=== PATIENT | female | born 1975 | race Caucasian/White ===

== ENCOUNTER 2018-12-31 19:12 | Inpatient (IN) | payer BC ==
[2018-12-31] MEDS ORDERED: Nitroglycerin 0.4 MG Tab.SL SL ONE (19:43)
[2018-12-31] MEDS ORDERED: LORazepam 2 MG/ML SDV IM ONE (19:43)
--- NOTE | 2018-12-31 20:01 | EDM.PDOC ---
ED HPI GENERAL MEDICAL PROBLEM - General Chief Complaint: Gastrointestinal Problem Stated Complaint: STUCK IN THROAT Time Seen by Provider: 12/31/18 19:25 Source of Information: Reports: Patient, Family History Limitations: Reports: No Limitations - History of Present Illness INITIAL COMMENTS - FREE TEXT/NARRATIVE: 43-year-old female who had a Leidy fundoplication last August has since had some persistent problems swallowing with esophageal obstructions. She had one dilatation done several months ago. She continues to have persistent partial obstructions but tonight she ate some orange chicken and she has a complete obstruction for the last 2 hours. She can't swallow any water or saliva. She is fairly uncomfortable. No shortness of breath, no cough. Onset: Sudden Duration: Hour(s): (2 hours ago) Associated Symptoms: Reports: Chest Pain (Pain in the epigastric area and lower anterior chest), Malaise. Denies: Fever/Chills, Headaches, Shortness of Breath esophagus Pain Score (Numeric/FACES): 7 - Related Data Allergies Allergy/AdvReac Type Severity Reaction Status Date / Time codeine Allergy Swelling Verified 12/31/18 19:22 hydromorphone HCl Allergy Swelling Verified 12/31/18 19:22 [From Dilaudid] Home Meds: Home Meds traZODone 100 mg PO BEDTIME 03/14/16 [History] Past Medical History HEENT History: Reports: None Cardiovascular History: Reports: Other (See Below) Other Cardiovascular History: occasional PVC Gastrointestinal History: Reports: Cholelithiasis, Gastritis, GERD Genitourinary History: Reports: Renal Calculus [employer] History: Reports: Polycystic Ovaries, Endocrine/Metabolic History: Reports: Obesity/BMI 30+ - Infectious Disease History Infectious Disease History: Reports: Chicken Pox - Past Surgical History HEENT Surgical History: Reports: LASIK, Other (See Below) Cardiovascular Surgical History: Reports: None GI Surgical History: Reports: Cholecystectomy, EGD, Leidy Fundoplication Female Surgical History: Reports: Other (See Below) Other Female Surgeries/Procedures: cervical/ uterine polyp removed Endocrine Surgical History: Reports: None Musculoskeletal Surgical History: Reports: Arthroscopic Knee Social & Family History - Tobacco Use Smoking Status *Q: Never Smoker - Caffeine Use Caffeine Use: Reports: Coffee - Recreational Drug Use Recreational Drug Use: No ED ROS GENERAL - Review of Systems Review Of Systems: See Below Constitutional: Denies: Fever, Chills Respiratory: Denies: Shortness of Breath GI/Abdominal: Reports: Abdominal Pain. Denies: Nausea, Vomiting : Reports: No Symptoms Skin: Reports: No Symptoms Neurological: Reports: No Symptoms ED EXAM, GI/ABD - Physical Exam Exam: See Below Exam Limited By: No Limitations General Appearance: Alert, Mild Distress (Appears very uncomfortable) Eyes: Bilateral: Normal Appearance Respiratory/Chest: No Respiratory Distress Cardiovascular: Regular Rate, Rhythm GI/Abdominal Exam: Soft, Tender (Very tender in the epigastric region) Course - Vital Signs Last Recorded V/S: Last Vital Signs Temp 97.3 F 01/01/19 03:00 Pulse 58 L 01/01/19 03:00 Resp 16 01/01/19 03:00 BP 111/75 01/01/19 03:00 Pulse Ox 96 01/01/19 03:00 - Orders/Labs/Meds Orders: Medication Orders Glycopyrrolate (Glycopyrrolate) 0.4 mg IVPUSH Q1H PRN PRN 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: 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 Stop: 01/02/19 06:03 Lactated Ringer's (Ringers, Lactated) 1,000 mls @ 150 mls/hr IV ASDIRECTED [facility] Last Admin: 01/01/19 04:31 Dose: 150 mls/hr Infusion: 01/01/19 04:25 Dose: 150 mls/hr Admin: 12/31/18 21:44 Dose: 150 mls/hr Ketorolac Tromethamine (Toradol) 15 mg IVPUSH Q6H PRN PRN Reason: Pain Stop: 01/05/19 21:05 Last Admin: 01/01/19 02:49 Dose: 15 mg Lorazepam (Ativan) 1 mg IVPUSH Q2H PRN PRN Reason: Anxiety Last Admin: 01/01/19 05:01 Dose: 1 mg Admin: 01/01/19 02:46 Dose: 1 mg Admin: 01/01/19 00:49 Dose: 1 mg Ondansetron HCl (Zofran) 4 mg IVPUSH Q4H PRN PRN Reason: Nausea/Vomiting Meds: Medications Generic Name Dose Route Start Last Admin Trade Name Freq PRN Reason Stop Dose Admin Glycopyrrolate 0.4 mg 01/01/19 06:02 Glycopyrrolate IVPUSH 01/02/19 06:03 Q1H PRN 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 Lactated Ringer's 1,000 mls @ 150 mls/hr 12/31/18 20:45 01/01/19 04:31 Ringers, Lactated IV 150 mls/hr ASDIRECTED [facility] Administration Ketorolac Tromethamine 15 mg 12/31/18 21:04 01/01/19 02:49 Toradol IVPUSH 01/05/19 21:05 15 mg Q6H PRN Administration Pain Lorazepam 1 mg 12/31/18 22:37 01/01/19 05:01 Ativan IVPUSH 1 mg Q2H PRN Administration Anxiety Ondansetron HCl 4 mg 12/31/18 22:36 Zofran IVPUSH Q4H PRN Nausea/Vomiting Discontinued Medications Generic Name Dose Route Start Last Admin Trade Name Freq PRN Reason Stop Dose Admin Ketorolac Tromethamine 30 mg 12/31/18 20:42 12/31/18 20:56 Toradol IVPUSH 12/31/18 20:43 30 mg ONETIME ONE Administration Lorazepam 1 mg 12/31/18 19:43 12/31/18 19:55 Ativan IM 12/31/18 19:44 1 mg ONETIME ONE Administration Lorazepam 0.5 mg 12/31/18 20:46 12/31/18 21:45 Ativan IVPUSH 0.5 mg Q2H PRN Administration DISCOMFORT Nitroglycerin 0.4 mg 12/31/18 19:43 12/31/18 19:55 Nitrostat SL 12/31/18 19:44 0.4 mg ONETIME ONE Administration Ondansetron HCl 4 mg 12/31/18 20:58 12/31/18 21:01 Zofran IVPUSH 12/31/18 20:59 4 mg ONETIME ONE Administration - Re-Assessments/Exams Free Text/Narrative Re-Assessment/Exam: 12/31/18 20:[address] Azar, he recommended admitting the patient with IV fluids and pain control and an EGD in the morning. She was given 1 mg of IM Ativan and 0.4 mg sublingual nitroglycerin and waited 20 minutes. 12/31/18 20:19 30 minutes after the Ativan and sublingual nitroglycerin, patient was still very uncomfortable. She'll be admitted to Dr. Azar's service, hydrated, given as needed Ativan and have an EGD in the morning. 12/31/18 20:42 Patient continued to be very uncomfortable and symptomatic in the emergency room so was given 30 mg of IV Toradol. Departure - Departure Time of Disposition: 21:05 Disposition: Admitted As Inpatient 65 Condition: Fair Clinical Impression: Esophageal obstruction due to food impaction - Discharge Information
[2018-12-31] MEDS ORDERED: Ketorolac 30 MG/ML SDV IVPUSH ONE (20:42)
[2018-12-31] MEDS ORDERED: LORazepam 2 MG/ML SDV IVPUSH PRN (20:46)
[2018-12-31] MEDS ORDERED: Ondansetron 4 MG/2 ML SDV IVPUSH ONE (20:58)
[2018-12-31] MEDS ORDERED: Ketorolac 30 MG/ML SDV IVPUSH PRN (21:04)
[2018-12-31] MEDS: Lactated Ringers 1,000 ML IV SCH (21:44)
[2019-01-01] MEDS: LORazepam 2 MG/ML SDV IVPUSH PRN ×3 (00:49→05:01)
[2019-01-01] MEDS: Lactated Ringers 1,000 ML IV SCH (04:31)
[2019-01-01] MEDS ORDERED: Glycopyrrolate 0.2 MG/ML 2 ML SDV IVPUSH PRN (06:02)
[2019-01-01] MEDS ORDERED: fentaNYL 100 MCG/2 ML SDV ONE (06:58)
[2019-01-01] MEDS ORDERED: Propofol 200 MG/20 ML SDV ONE ×6 (06:58→10:08)
[2019-01-01] MEDS ORDERED: Midazolam 1 MG/ML 2 ML SDV ONE (06:58)
[2019-01-01] MEDS ORDERED: Dexamethasone 4 MG/ML SDV ONE ×2 (07:39→10:08)
[2019-01-01] MEDS ORDERED: Ondansetron 4 MG/2 ML SDV ONE ×2 (07:39→10:08)
[2019-01-01] MEDS ORDERED: Lactated Ringers 1,000 ML ONE (07:47)
[2019-01-01] MEDS ORDERED: FENTANYL PATCH ASK TOP SCH (08:00)
[2019-01-01] MEDS ORDERED: Iopamidol 612 MG/ML 100 ML Bottle IV PRN (08:40)
[2019-01-01] MEDS ORDERED: Sodium Chloride 0.9% 10 ML Syringe FLUSH ONE (08:40)
[2019-01-01] MEDS ORDERED: Glycopyrrolate 0.2 MG/ML 5 ML MDV ONE (10:08)
[2019-01-01] MEDS ORDERED: Neostigmine Methylsulfate 1 MG/ML 5 ML Syringe ONE (10:08)
[2019-01-01] MEDS ORDERED: Rocuronium 50 MG/5 ML Vial ONE (10:08)
[2019-01-01] MEDS ORDERED: Succinylcholine 200 MG/10 ML MDV ONE (10:08)
--- NOTE | 2019-01-01 10:55 | CRLCT ---
INDICATION: Evaluate hiatal hernia. TECHNIQUE: Volumetric helical scanning of the chest and abdomen was performed with 100 cc of Isovue-300 contrast material IV. Coronal and sagittal reconstructions were obtained. COMPARISON: None. FINDINGS: A small left pleural effusion is noted. The right pleural space is clear. The lungs are clear. No mediastinal or hilar lymphadenopathy is evident. A 3 mm nodule is demonstrated in the right thyroid lobe. The heart is normal in size. A hiatal hernia of moderate size is demonstrated. The hiatal hernia is to the left side of the aorta and spine. The visualized bowel is otherwise unremarkable. The liver is unremarkable except for several small left lobe cysts. Post op changes of cholecystectomy are demonstrated. The bile ducts are mildly prominent, likely due to post-cholecystectomy reservoir effect. The spleen is within normal limits. The adrenal glands are unremarkable. The pancreas is within normal limits. The kidneys are unremarkable. No lymphadenopathy is evident. No free fluid is evident. IMPRESSION: 1. Hiatal hernia of moderate size. 2. Small left pleural effusion. 3. Post cholecystectomy and mildly prominent bile ducts likely due to post cholecystectomy reservoir effect. 4. Several small liver cysts. 5. 3 mm right thyroid nodule. Please note that all CT scans at this facility use dose modulation, iterative reconstruction, and/or weight-based dosing when appropriate to reduce radiation dose to as low as reasonably achievable. Dictated by Dakota Mujica MD @ Jan 01 2019 10:43AM Signed by Dr. Dakota Mujica @ Jan 01 2019 10:52AM
[2019-01-01] MEDS ORDERED: Naloxone 0.4 MG/ML SDV IV PRN (10:59)
[2019-01-01] MEDS ORDERED: fentaNYL/Normal Saline 600 MCG/30 ML PCA Vial IV PRN (10:59)
--- NOTE | 2019-01-01 10:59 | CRLCT ---
Final Report: INDICATION: Evaluate hiatal hernia. TECHNIQUE: Volumetric helical scanning of the chest and abdomen was performed with 100 cc of Isovue-300 contrast material IV. Coronal and sagittal reconstructions were obtained. COMPARISON: None. FINDINGS: A small left pleural effusion is noted. The right pleural space is clear. The lungs are clear. No mediastinal or hilar lymphadenopathy is evident. A 3 mm nodule is demonstrated in the right thyroid lobe. The heart is normal in size. A hiatal hernia of moderate size is demonstrated. The hiatal hernia is to the left side of the aorta and spine. The visualized bowel is otherwise unremarkable. The liver is unremarkable except for several small left lobe cysts. Post op changes of cholecystectomy are demonstrated. The bile ducts are mildly prominent , likely due to post-cholecystectomy reservoir effect. The spleen is within normal limits. The adrenal glands are unremarkable. The pancreas is within normal limits. The kidneys are unremarkable. No lymphadenopathy is evident. No free fluid is evident. IMPRESSION: 1. Hiatal hernia of moderate size. 2. Small left pleural effusion. 3. Post cholecystectomy and mildly prominent bile ducts likely due to post cholecystectomy reservoir effect. 4. Several small liver cysts. 5. 3 mm right thyroid nodule. Please note that all CT scans at this facility use dose modulation, iterative reconstruction, and/or weight-based dosing when appropriate to reduce radiation dose to as low as reasonably achievable. Dictated by Dakota Mujica MD @ Jan 01 2019 10:43AM (Electronic Signature) MTDD
[2019-01-01] MEDS ORDERED: Ropivacaine 35 ML, Dexamethasone 8 MG, EPINEPHrine 0.4 MG, Sodium Chloride 0.9% 42.6 ML NERVRT SCH ×4 (11:00)
[2019-01-01] MEDS ORDERED: fentaNYL 25 MCG/HR Transdermal Patch TRDERM SCH ×2 (11:00)
[2019-01-01] MEDS ORDERED: fentaNYL 50 MCG/HR Transdermal Patch TRDERM SCH (11:00)
[2019-01-01] MEDS ORDERED: Lidocaine 2% 100 MG/5 ML Syringe IVPUSH SCH (11:15)
[2019-01-01] MEDS: cefOXitin 2 GM in Sodium Chloride 0.9% 50 ML IV ONE ×2 (11:47→14:56)
[2019-01-01] MEDS ORDERED: Meropenem 500 MG SDV ONE (12:46)
[2019-01-01] MEDS ORDERED: Lidocaine 1% with EPINEPHrine 1:100,000 50 ML MDV ONE (12:57)
[2019-01-01] MEDS ORDERED: Bupivacaine 0.5% 50 ML MDV ONE (12:57)
--- NOTE | 2019-01-01 13:17 | CRLCR ---
Indication: Postsurgical Leidy revision. Technique: Chest 1 view Comparison: CT chest January 01, 2019. Findings/Impression: Cardiovascular and mediastinum: Endotracheal tube is 2 cm above the akua. Heart size and pulmonary vasculature are normal. Lungs and pleural space: Lungs are clear. No sign of infiltrate or mass. No sign of pleural effusion. No pneumothorax. Bones and soft tissues: No acute findings. Dictated by Kyle Thapa MD @ Jan 01 2019 1:15PM Signed by Dr. Kyle Thapa @ Jan 01 2019 1:16PM
[2019-01-01] MEDS ORDERED: fentaNYL 12 MCG/HR Transdermal Patch TRDERM PRN ×2 (13:30→15:06)
[2019-01-01] MEDS ORDERED: fentaNYL 100 MCG/2 ML SDV IVPUSH ONE (13:58)
[2019-01-01] MEDS: Lidocaine 0.4%/D5W 2 GM/500 ML BAG IV SCH (14:55)
[2019-01-01] MEDS ORDERED: Labetalol 20 MG/4 ML Syringe IVPUSH PRN (15:01)
[2019-01-01] MEDS ORDERED: Metoclopramide 10 MG/2 ML SDV IVPUSH PRN (15:01)
[2019-01-01] MEDS ORDERED: diphenhydrAMINE 50 MG/ML SDV IVPUSH PRN (15:01)
[2019-01-01] MEDS ORDERED: hydrOXYzine HCl 100 MG/2 ML SDV IM PRN (15:01)
[2019-01-01] MEDS: MVI, Adult with Vitamin K 10 ML, Thiamine 200 MG, Chromium/Copper/Mang/Selen/Zn 1 ML in... IV SCH ×4 (16:07)
[2019-01-01] MEDS: cefOXitin 2 GM in Sodium Chloride 0.9% 50 ML IV SCH ×2 (17:06→23:58)
[2019-01-01] MEDS: Pantoprazole 40 MG Vial IVPUSH SCH (17:07)
[2019-01-01] MEDS: Ondansetron 4 MG/2 ML SDV IVPUSH PRN (17:30)
[2019-01-01] MEDS ORDERED: Benzocaine/Cetylpyridinium/Menthol Lozenge MUCMEM PRN (17:31)
[2019-01-01] MEDS ORDERED: Phenol/Sodium Phenolate Spray 180 ML Bottle MUCMEM PRN (17:31)
[2019-01-01] MEDS: Acetaminophen 325 MG Tab PO SCH (20:15)
[2019-01-01] MEDS ORDERED: FENTANYL PATCH CHECK TOP SCH (21:00)
[2019-01-01] MEDS: FENTANYL PATCH CHECK TOP SCH (21:14)
[2019-01-01] MEDS: Dextrose 5%-Lactated Ringers 1,000 ML IV SCH (22:26)
[2019-01-02] MEDS: Acetaminophen 325 MG Tab PO SCH ×4 (02:04→20:14)
[2019-01-02] MEDS ORDERED: Iohexol 647 MG/ML 50 ML SDV PO STA (02:13)
--- NOTE | 2019-01-02 02:57 | CRLCR ---
INDICATION: Status post hernia repair and partial gastrectomy TECHNIQUE: Abdomen modified upper GI COMPARISON: None FINDINGS: Bowel: Oral contrast transits across the GE junction through the stomach and into the pyloric channel. No evidence of leakage. Soft tissues: No sign of free air. No sign of soft tissue mass. No suspicious calcifications. Bones: Unremarkable for age. IMPRESSION: Unremarkable oral contrast transits across the GE junction through the stomach into the pyloric channel. No evidence of leakage. Dictated by Syed Carbajal MD @ Jan 02 2019 2:56AM Signed by Dr. Syed Carbajal @ Jan 02 2019 2:56AM
[2019-01-02] MEDS: Dextrose 5%-Lactated Ringers 1,000 ML IV SCH ×2 (04:51→12:55)
[2019-01-02] MEDS: cefOXitin 2 GM in Sodium Chloride 0.9% 50 ML IV SCH ×3 (05:45→17:17)
--- NOTE | 2019-01-02 06:58 | CRLCR ---
INDICATION: Status post hernia repair and partial gastrectomy. Followup. COMPARISON: Upper GI study dated 02 January 2019 at 0238 hours. FINDINGS: A single view of the abdomen shows contrast in the stomach and only a small amount of the contrast extending into the 1st and 2nd portions of the duodenum. No dilated loops of bowel. Skin bernice over the mid abdomen. No other bony or soft tissue abnormalities identified. IMPRESSION: Delayed gastric emptying which may be due to a postsurgical ileus Dictated by Lance Donald MD @ 01/02/2019 6:55:51 AM Dictated by: Lance Donald MD @ 01/02/2019 06:56:00 (Electronically Signed)
[2019-01-02] MEDS: Cyclobenzaprine 10 MG Tab PO PRN (07:45)
--- NOTE | 2019-01-02 07:49 | PN ---
DATE OF SERVICE: 01/02/2019 SUBJECTIVE: Cecilia Roblero is postoperative day #1. Her upper GI was normal this morning. Her pain is not controlled. Vital signs have been stable. Temperature max 91.1. Remainder of review of systems negative for any pertinent positives and negatives. OBJECTIVE: GENERAL: Cecilia Roblero is a 43-year-old female. VITAL SIGNS: TPR is 98.8, 80, 18. Blood pressure 122/79. HEENT: Negative. NECK: Supple. HEART: Regular rate and rhythm. LUNGS: Clear. ABDOMEN: Dressings dry and intact. Abdominal binder is on. Porras catheter in place. EXTREMITIES: SCDs are on and there is no peripheral edema. 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 Date of surgery 01/01/2019. Surgeon, Fran Azar MD. PLAN: 1. Clear liquid diet. 2. Decrease IV to 100 mL per hour at noon. 3. Discontinue Porras catheter, 1500. 4. Reglan 5 mg IV q.6 hours scheduled. 5. Lidocaine 5%, 700 mg patch every 24 hours. 6. Flexeril 10 mg q.6 hours p.r.n. muscle spasms. 7. Continue to work on incentive spirometer. 8. We will evaluate p.r.n. or in a.m. Alexa Dewitt PA-C /[id number]
[2019-01-02] MEDS: Ondansetron 4 MG/2 ML SDV IVPUSH PRN (08:34)
[2019-01-02] MEDS: Metoclopramide 10 MG/2 ML SDV IVPUSH SCH ×3 (08:36→20:16)
[2019-01-02] MEDS: Lidocaine 5% 700 MG Patch TOP SCH (08:37)
[2019-01-02] MEDS: FENTANYL PATCH CHECK TOP SCH (08:38)
[2019-01-02] MEDS: SCOPOLAMINE PATCH CHECK TOP SCH (08:39)
[2019-01-02] MEDS ORDERED: Scopolamine 1.5 MG Transdermal Patch TOP SCH (09:00)
[2019-01-02] MEDS: Magnesium Sulfate/Water 2 GM in Premix Bag 1 BAG IV SCH ×3 (09:37→21:53)
[2019-01-02] MEDS: Lidocaine 0.4%/D5W 2 GM/500 ML BAG IV SCH (11:05)
--- NOTE | 2019-01-02 11:38 | OR ---
DATE OF PROCEDURE: 01/01/2019 PREOPERATIVE DIAGNOSIS: Incarcerated paraesophageal diaphragmatic hernia. 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 OPERATIVE PROCEDURES: Exploratory laparotomy with: 1. Reduction and repair of paraesophageal diaphragmatic hernia with mesh (78800). 2. Excision of a portion of ischemic distal esophagus and adjacent gastric fundus (03379). ANESTHESIA: General. INDICATIONS FOR PROCEDURE: Please see progress note dictated earlier today. DETAILS OF PROCEDURE: The patient was taken to the operating room, and after general endotracheal anesthesia was induced, a Porras catheter was inserted, and the abdomen was prepped and draped. Upper midline incision from the xiphoid to just above the umbilicus was made and carried down through the full-thickness abdominal wall. Upon entering the peritoneal cavity, bilateral subcostal transversus abdominis plane blocks were placed. The area of the esophagogastric junction was inspected. The patient was noted to have stomach prolapsed up into the chest through a fairly narrow opening in the diaphragm. Initial attempts at reduction of this were unsuccessful. At that point, the triangular ligament of the left lobe of the liver was divided, allowing medial mobilization of that, and we then further attempted to reduce the stomach, which was unsuccessful. Given this, roughly 2 cm of the diaphragm was divided, beginning on the left side of the opening and extending leftward. This then allowed eventual reduction of the stomach. It was notable that, prior to reduction, one could feel a large bulge of distended stomach through the diaphragm with some of it beyond the chest side of the diaphragm. Upon its reduction, the patient was noted to have roughly a golf ball-sized area of stomach, as well as the edge of the adjacent esophagus, which was markedly ischemic and of questionable viability. The fundoplication had become somewhat undone, and this portion of the gastric fundus which was resected appeared to probably have been previously part of the fundoplication. Anyway, at that point, Delmer tube was passed per Anesthesia through the esophagus and into the main body of the stomach. This was placed such that we would not overly tighten the esophagogastric junction. The distalmost esophagus and adjacent gastric fundus which was involving ischemic changes was then resected with FAIZA black and purple loads. The closure of the esophagus and adjacent stomach appeared to be satisfactory at this point. At this point, the diaphragm was re-repaired with some interrupted 0 Ethibond sutures reinforced with PTFE pledgets. We then placed a rim of mesh on the left side of the diaphragmatic opening, extending somewhat anteriorly to more or less the middle portion of the esophagus and then posteriorly along the area of the left andrew. This mesh was a Phasix ST mesh, which was a dissolvable mesh, and was fixed in place with some titanium tacking screws. At this point, we elected to redo a partial wrap. The gastric and esophageal resection had resulted in some esophageal lengthening, which may be helpful with regard to reflux , and a partial wrap using the remaining fundus was then constructed using 0 Ethibond sutures, reinforced with PTFE pledgets. Once again, this all being done with the Delmer tube in place. The esophageal and gastric staple lines were then reinforced with fibrin sealant, and then after the wrap, this was also reinforced with some additional fibrin sealant. At that point, the abdomen was irrigated with antibiotic-containing saline solution. No further problems were noted at this point. The patient had a free opening into the left pleural space, and prior to tying of the diaphragmatic repair stitches, a 15-Gu[place]alan round Jimi-Quintana drain had been placed into the left pleural space and placed on suction and then withdrawn, after those sutures had been tied and anesthesia providing some positive- pressure. Chest x-ray was obtained prior to leaving the operating room, which showed no evidence of persistent pneumothorax: At this point, midline fascia was approximated with a #2 Vicryl stitch, subcutaneous tissue with 2 layers of 4-0 Vicryl stitch, and the skin with bernice. The patient was taken to the recovery room in satisfactory condition. There were no additional complications. Fran Azar MD /[id number]
--- NOTE | 2019-01-02 12:15 | OR ---
DATE OF PROCEDURE: 01/01/2019 PREOPERATIVE DIAGNOSIS: Food bolus obstruction of esophagus. POSTOPERATIVE DIAGNOSIS: Probable large paraesophageal diaphragmatic hernia with impacted meat and inability to pass the scope out of the superior diaphragmatic portion of stomach. OPERATIVE PROCEDURE: Upper GI endoscopy with removal of foreign body (ingested chicken) (06423). ANESTHESIA: IV sedation. INDICATION FOR PROCEDURE: This is a 43-year-old status post a Leidy fundoplication done in [place] in May of last year, presenting with obstructing food bolus. She has had considerable problems with dysphagia since the operative procedure in May, and then after eating some chicken was unable to maintain any further oral intake and in fact was bringing up some of her swallowed saliva. Plan is to proceed with upper GI endoscopy with removal of foreign body and dilation of the esophagus as indicated. Potential risks including bleeding, perforation, and possible aspiration of this esophageal contents were reviewed, and the patient wishes to proceed. DETAILS OF PROCEDURE: The patient was taken to the operating room and placed in a left lateral decubitus position. IV sedation was administered, after which the upper GI endoscope was passed orally through the length of the esophagus. Some of slightly huggins stained saliva was present. This was evacuated and then we moved down toward the esophagogastric junction. This was noted to be somewhat shortened measuring around 32 cm from the incisors. The outlet from the esophagogastric junction also appeared to be quite distorted. Eventually, the scope could be passed into the pocket of stomach which was markedly distended and associated with some mucosal hemorrhage. There were very large amount of fragments of chicken. This was eventually removed by means of three prong graspers with multiple passes of the scope required to accomplish that. Eventually, all of the ingested food was evacuated. At that point, we were not able to identify any outlet of the stomach into level below the diaphragm indicating this probably at this point became markedly edematous paraesophageal hernia which was now taken down to the duodenum such that we could not pass the scope further distally through the level of the diaphragm. The scope was then withdrawn, procedure concluded. The patient was taken to the recovery room in satisfactory condition. Plan will be to obtain an urgent CT scan of the chest and abdomen to evaluate this overall situation and the patient will likely need an operative procedure for correction this morning. Fran Azar MD /[id number]
--- NOTE | 2019-01-02 13:35 | PN ---
DATE OF SERVICE: 01/01/2019 Cecilia had an upper GI endoscopy which showed what appeared to be a paraesophageal diaphragmatic hernia which has resulted in quite a bit of edema and some mucosal hemorrhage and inability to pass the scope beyond the diaphragmatic portion of the stomach. A CT scan was obtained, which did confirm the hiatal hernia. Otherwise, there is a small left pleural effusion, but no other major findings. Plan will be to, if the patient continues to be quite uncomfortable indicating we are probably dealing with some degree of ongoing gastric ischemia involved by the paraesophageal hernia and we will proceed with an open laparotomy and reduction of the hernia. She is aware of the possible need for gastric resection, otherwise potential risks including bleeding, infection, persistent dysphagia postprocedure, problems with the staple lines breaking down and causing leaks were reviewed with the patient and her who was present and they wished to proceed. Surgery will be undertaken shortly. Fran Azar MD /[id number]
[2019-01-02] MEDS: MVI, Adult with Vitamin K 10 ML, Thiamine 200 MG, Chromium/Copper/Mang/Selen/Zn 1 ML in... IV SCH ×4 (15:32)
[2019-01-02] MEDS: Pantoprazole 40 MG Vial IVPUSH SCH (16:41)
[2019-01-03] MEDS: cefOXitin 2 GM in Sodium Chloride 0.9% 50 ML IV SCH (00:53)
[2019-01-03] MEDS: Acetaminophen Soln 650 MG/20.3 ML UD Cup PO SCH ×4 (02:17→20:20)
[2019-01-03] MEDS: Metoclopramide 10 MG/2 ML SDV IVPUSH SCH ×3 (02:17→14:58)
[2019-01-03] MEDS: Dextrose 5%-Lactated Ringers 1,000 ML IV SCH (04:36)
[2019-01-03] MEDS: Magnesium Sulfate/Water 2 GM in Premix Bag 1 BAG IV SCH ×3 (04:38→15:00)
--- NOTE | 2019-01-03 08:45 | PN ---
DATE OF SERVICE: 01/03/2019 SUBJECTIVE: Cecilia is feeling a little bit better. She states she did have an episode of getting a Tylenol down. She was switched to liquid Tylenol and she is able to swallow that much better. Does report pain and difficulty swallowing in her throat. She states that liquids do not hurt when she swallows, but she can feel them going all the way down. Has been up, ambulating. Pain is controlled, but does not like the sleepiness that she gets from the [employer] as well as the Flexeril. REVIEW OF SYSTEMS: Remainder of review of systems negative for any pertinent positives and negatives. OBJECTIVE: GENERAL: Cecilia Roblero is a 43-year-old female. VITAL SIGNS: TPR is 98.4, 68, 16. Blood pressure 128/82. HEENT: Negative. NECK: Supple. HEART: Regular rate and rhythm. LUNGS: Clear. ABDOMEN: Dressings dry and intact. Aquacel dressing on. EXTREMITIES: Without peripheral edema. ASSESSMENT: Exploratory laparotomy with: 1. Reduction and repair of paraesophageal diaphragmatic hernia with mesh. 2. Excision of portion of the ischemic distal esophagus and adjacent to gastric fundus for incarcerated paraesophageal diaphragmatic hernia with segmental necrosis, portion of the stomach and adjacent esophagus. Date of surgery, 01/01/2019. Surgeon, Fran Azar MD. PLAN: 1. May shower. 2. Three med cups, one every 20 minutes to try to get enough oral liquids in. 3. Full liquid diet with no cereals. We will evaluate p.r.n. or in a.m. Alexa Dewitt PA-C /[id number]
[2019-01-03] MEDS: SCOPOLAMINE PATCH CHECK TOP SCH (09:46)
[2019-01-03] MEDS: Lidocaine 5% 700 MG Patch TOP SCH (09:46)
[2019-01-03] MEDS: Ondansetron 4 MG/2 ML SDV IVPUSH PRN (11:23)
[2019-01-03] MEDS: traMADol 50 MG Tab PO PRN ×4 (14:01→22:49)
[2019-01-03] MEDS: Pantoprazole 40 MG Vial IVPUSH SCH (16:42)
[2019-01-03] MEDS: MVI, Adult with Vitamin K 10 ML, Thiamine 200 MG, Chromium/Copper/Mang/Selen/Zn 1 ML in... IV SCH ×4 (16:43)
[2019-01-03] MEDS ORDERED: hydrOXYzine HCl 25 MG Tab PO PRN (20:26)
[2019-01-03] MEDS ORDERED: Ondansetron 4 MG Tab.DIS PO PRN (20:27)
[2019-01-04] MEDS: Acetaminophen Soln 650 MG/20.3 ML UD Cup PO SCH ×6 (02:00→23:30)
[2019-01-04] MEDS: Cyclobenzaprine 10 MG Tab PO PRN (02:05)
[2019-01-04] MEDS: traMADol 50 MG Tab PO PRN ×4 (03:43→17:22)
[2019-01-04] MEDS ORDERED: Magnesium Hydroxide 400 MG/5 ML Susp 30 ML Cup PO ONE (08:00)
[2019-01-04] MEDS: Docusate Sodium 100 MG Cap PO SCH ×2 (08:03→20:04)
[2019-01-04] MEDS: Lidocaine 5% 700 MG Patch TOP SCH (08:56)
--- NOTE | 2019-01-04 11:02 | PN ---
DATE OF SERVICE: 01/04/2019 HISTORY OF PRESENT ILLNESS: Cecilia feels like she is in less pain today. Oral intake 960. Urine output is 3175. Her IV did infiltrate and it is difficult to get an IV in. Cecilia opted to work hard on her oral intake rather than put back in the IV. She has been up ambulating, has not slept well, usually takes trazodone at night and would like that reordered. Taking tramadol 100 mg for pain, Flexeril 5 mg. Has passed a little flatus twice. Has no other concerns or questions. REVIEW OF SYSTEMS: Remainder of review of systems negative for any pertinent positives or negatives. OBJECTIVE: GENERAL: Cecilia Roblero is a pleasant 43-year-old female. VITAL SIGNS: TPR is 97.9, 57, 16, blood pressure 129/83. HEENT: Negative. NECK: Supple. HEART: Regular rate and rhythm. LUNGS: Clear. ABDOMEN: Dressings dry and intact. Abdominal binder is on. EXTREMITIES: Without peripheral edema. ASSESSMENT: Exploratory laparotomy with: 1. Reduction and repair of paraesophageal diaphragmatic hernia with mesh. 2. 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 Date of surgery, 01/01/2019. Surgeon, Fran Azar MD. PLAN: Trazodone 100 mg p.o. at bedtime, milk of magnesia 30 mL one time today, Colace 100 mg p.o. b.i.d. Check CBC, CMP, mag, and phos in a.m. Continue to work on liquids, gradual intake, 3 med cups per hour. We will evaluate p.r.n. or in a.m. Alexa Dewitt PA-C /[id number]
[2019-01-04] MEDS: traZODone 50 MG Tab PO SCH (20:05)
[2019-01-05] MEDS: Acetaminophen Soln 650 MG/20.3 ML UD Cup PO SCH ×8 (01:28→22:51)
[2019-01-05] MEDS: traMADol 50 MG Tab PO PRN ×3 (04:24→18:42)
[2019-01-05] MEDS: Lidocaine 5% 700 MG Patch TOP SCH (08:08)
[2019-01-05] MEDS: Docusate Sodium 100 MG Cap PO SCH ×2 (08:09→21:15)
--- NOTE | 2019-01-05 11:06 | PN ---
DATE OF SERVICE: 01/05/2019 SUBJECTIVE: Cecilia states that she feels more pain this morning, more in her upper chest and ribcage. She states yesterday she did not have that pain, taking tramadol 100 mg for pain. Feels a little bit itchy, but isn't sure where that is coming from. She is having frequent bowel movements. Oral intake 1630. Denies any difficulty or pain with swallowing. Urine output is 900. She is on a full-liquid diet without cereal. Breakfast consumed 50, lunch 50, and dinner 80. REVIEW OF SYSTEMS: Remainder of review of systems negative for any pertinent positives or negatives. OBJECTIVE: GENERAL: Cecilia Roblero is a 43-year-old female, alert and orientated, color pale, appears weak. VITAL SIGNS: TPR 98.6, 58, 16, blood pressure 114/69. HEENT: Negative. NECK: Supple. HEART: Regular rate and rhythm. LUNGS: Clear. ABDOMEN: Dressings dry and intact. Aquacel on and abdominal binder is on. EXTREMITIES: Without peripheral edema. ASSESSMENT: Exploratory laparotomy with: 1. 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 2. 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 Date of surgery, 01/01/2019. Surgeon, Fran Azar MD. PLAN: Continue tramadol for pain as directed. Discontinue Aquacel dressing. We will evaluate p.r.n. or in a.m. Possibly discharge in a.m. Alexa Dewitt PA-C /[id number]
[2019-01-05] MEDS: traZODone 50 MG Tab PO SCH (21:56)
[2019-01-06] MEDS: traMADol 50 MG Tab PO PRN ×2 (02:08→07:53)
[2019-01-06] MEDS: Acetaminophen Soln 650 MG/20.3 ML UD Cup PO SCH ×2 (03:29→07:22)
[2019-01-06 07:21] VITALS: BP 121/62
--- NOTE | 2019-01-06 08:43 | DISCH ---
ADMISSION DIAGNOSIS: Food bolus obstruction of esophagus. DISCHARGE DIAGNOSES: 1. Upper gastrointestinal endoscopy with removal of foreign body, ingested chicken. Date 01/01/2019. Surgeon, Fran Azar MD. Exploratory laparotomy with: 1. Reduction and repair of paraesophageal diaphragmatic hernia with mesh. 2. 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 HISTORY: Cecilia went to the emergency room on 01/01/2019 after she was eating some chicken and felt like it got stuck. She had had a Leidy fundoplication done in [place] in May. She has had considerable problems with dysphagia since operative procedure in May then after eating some chicken, was unable to maintain any further oral intake and was unable to swallow her own saliva. An upper GI with removal of foreign body and dilatation of the esophagus was indicated. The foreign food was removed. The outlet of esophagogastric junction was quite distorted. An urgent CT scan was done and after preoperative evaluation, discussion of possible risks and possible complications, the patient wished to proceed with surgical procedure. She had her exploratory laparotomy shortly after the CT scan. She had no operative complications. On postoperative day 1, started on a clear liquid diet. Porras catheter was discontinued. The pain was minimally controlled. 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 On postoperative day 2, advanced to full liquid diet with no cereal. She was given 3 med cups to try to gradually increase that oral intake and was changed to tramadol. The patient did not like how the narcotics made her feel and chose to not take any, that caused her to be quite sleepy. On postoperative day 3, she was given bowel stimulation. Vital signs did remain stable. Lab work was normal. She did start having bowel movements. The next postop day 4, continued to have normal vital signs. Activity improved. Pain was well managed. She slept better during the night. Oral intake adequate and she was able to be discharged to home on 01/06/2019 without any complications. PHYSICAL EXAMINATION: GENERAL: Cecilia Roblero is a 43-year-old female. VITAL SIGNS: Height is 5 feet 2.99 inches. Weight is 155 pounds. TPR 97.4, 56, 14, and blood pressure 121/62. HEENT: Negative. NECK: Supple. HEART: Regular rate and rhythm. LUNGS: Clear. ABDOMEN: Midline incision. Hartline intact. Abdominal binder has been on. EXTREMITIES: Without peripheral edema. DISPOSITION: Discharged to home. CONDITION: Stable and improving. FOLLOWUP: Followup appointment with Fran Azar MD on 01/09/2019 at 3:00 p.m. HOME MEDICATIONS: 1. Tylenol 650 mg oral q.4 hours. She may do liquid or chewable. 2. Colace 100 mg oral twice daily, #100. 3. Zofran ODT 4 mg every 4 hours p.r.n. nausea #30. 4. Tramadol 50 to 100 mg oral q.4 hours p.r.n. pain. 5. She is to resume home medication of trazodone 100 mg oral at bedtime. DIET: Full liquid diet with no cereal for 2 weeks. Drink 8 to 10 glasses of water a day. OTHER ACTIVITY: No lifting over 10 pounds for 6 weeks. Walk at least 6 times daily inside your home. Driving, do not drive for 1 week. Shower/bathing, may shower. DISCHARGE INSTRUCTIONS: Notify provider if any fever, increased pain, nausea, or vomiting. Keep site clean and dry. Wear abdominal binder for 6 weeks as tolerated. SPECIAL INSTRUCTIONS: Use incentive spirometer 10 times every hour while awake. If any questions or concerns, call Clinic Surgery Department [phone].
[2019-01-06] MEDS: Lidocaine 5% 700 MG Patch TOP SCH (09:13)
[2019-01-06] MEDS: Docusate Sodium 100 MG Cap PO SCH (09:13)
== END 2019-01-06 09:40 | disposition home or self-care (01) | DRG 220 ==
LOC: JP.ED 19:12 → JP.MS 20:27 → OBSVTOIN 01-01 13:15 → JP.MS 01-03 13:32
PROVIDERS: ADMIT Surgery; ATTEND Surgery
PROC: 0DC68ZZ Extirpation of Matter from Stomach, Via Natural or Artificial Opening Endoscopic (ICD-10-PCS; principal; 2019-01-01)
PROC: 0DB30ZZ Excision of Lower Esophagus, Open Approach (ICD-10-PCS; 2019-01-01)
PROC: 0DB60ZZ Excision of Stomach, Open Approach (ICD-10-PCS; 2019-01-01)
PROC: 0BUT0JZ Supplement Diaphragm with Synthetic Substitute, Open Approach (ICD-10-PCS; 2019-01-01)
PROC: 0DQ40ZZ Repair Esophagogastric Junction, Open Approach (ICD-10-PCS; 2019-01-01)
DX: K22.2 Esophageal obstruction (principal); T18.128A Food in esophagus causing other injury, initial encounter; X58.XXXA Exposure to other specified factors, initial encounter; Y92.009 Unspecified place in unspecified non-institutional (private) residence as the place of occurrence of the external cause; K44.0 Diaphragmatic hernia with obstruction, without gangrene; K21.9 Gastro-esophageal reflux disease without esophagitis; K22.8 Other specified diseases of esophagus; K31.89 Other diseases of stomach and duodenum; Z88.5 Allergy status to narcotic agent
CPT/HCPCS: 36415; 71045; 71260; 74018; 74160; 74240; 80053; 83735; 84100; 85025; 85027; 88307; 88342; 94762; 96361; 96372; 96374; 96375; 96376; 99285-25; A9270-GY; C1781; C9113; G0378; J0171; J0330; J0694; J1100; J1885; J2001; J2060; J2185; J2250; J2405; J2704; J2710; J2765; J2795; J3010; J3410; J3411; J3475; J3490; J7030; J7042; J7050; J7120; Q9967

== ENCOUNTER 2020-04-22 10:16 | Inpatient (IN) | payer BC ==
[2020-04-22] MEDS ORDERED: fentaNYL 100 MCG/2 ML SDV IVPUSH ONE ×3 (10:36→12:40)
[2020-04-22] MEDS ORDERED: Ondansetron 4 MG/2 ML SDV IVPUSH ONE (10:36)
[2020-04-22] MEDS ORDERED: Lactated Ringers 1,000 ML IV SCH (10:45)
--- NOTE | 2020-04-22 10:52 | EDM.PDOC ---
ED HPI GENERAL MEDICAL PROBLEM - General Chief Complaint: Abdominal Pain Stated Complaint: ABD PAIN Time Seen by Provider: 04/22/20 10:35 Source of Information: Reports: Patient, Old Records, RN History Limitations: Reports: No Limitations - History of Present Illness INITIAL COMMENTS - FREE TEXT/NARRATIVE: 44 yo female with a pHx of both cholecystectomy and Leidy fundoplication x 2 presents with onset of RUQ abdominal pain about 0300-0400h today. Has some nausea without vomiting. No change in bowels. No fever. No urinary sx's. Is intolerant of many narcotic pain meds. Onset: Today Onset Date: 04/22/20 Onset Time: 04:00 Duration: Hour(s):, Constant Location: Reports: Abdomen (RUQ) Quality: Reports: Ache Improves with: Reports: None Worsens with: Reports: None Context: Reports: Other (See HPI) Associated Symptoms: Reports: Nausea/Vomiting (no vomiting). 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 Right Upper Abdominal Pain Score (Numeric/FACES): 6 - Related Data Allergies Allergy/AdvReac Type Severity Reaction Status Date / Time codeine Allergy Swelling Verified 09/03/19 15:51 hydromorphone HCl Allergy Swelling Verified 09/03/19 15:51 [From Dilaudid] Home Meds: Home Meds traZODone 100 mg PO BEDTIME 03/14/16 [History] Ondansetron [Zofran ODT] 4 mg PO Q4H PRN #30 tab.dis 01/06/19 [Rx] Lactobacillus Acidophilus [Probiotic] 1 tab PO DAILY 05/27/19 [History] Naproxen [Naprosyn] 500 mg PO Q12HR PRN 30 Days #60 tab 05/27/19 [Rx] Omeprazole 40 mg PO DAILY 08/27/19 [History] Multivitamin [Multi-Day Vitamins] 1 tab PO DAILY 11/11/19 [History] Past Medical History HEENT History: Reports: Impaired Vision Cardiovascular History: Reports: Other (See Below) Other Cardiovascular History: occasional PVC Respiratory History: Reports: None Gastrointestinal History: Reports: Cholelithiasis, Gastritis, GERD Genitourinary History: Reports: Renal Calculus 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: Polycystic Ovaries, Musculoskeletal History: Reports: Back Pain, Chronic, Other (See Below) Other Musculoskeletal History: L foot pain Neurological History: Reports: None Psychiatric History: Reports: None Endocrine/Metabolic History: Reports: Obesity/BMI 30+ Hematologic History: Reports: None Immunologic History: Reports: None Oncologic (Cancer) History: Reports: None Dermatologic History: Reports: None - Infectious Disease History Infectious Disease History: Reports: Chicken Pox - Past Surgical History HEENT Surgical History: Reports: LASIK, Other (See Below) Cardiovascular Surgical History: Reports: None GI Surgical History: Reports: Cholecystectomy, EGD, Leidy Fundoplication Female Surgical History: Reports: Other (See Below) Other Female Surgeries/Procedures: cervical/ uterine polyp removed Endocrine Surgical History: Reports: None Musculoskeletal Surgical History: Reports: Arthroscopic Knee Social & Family History - Tobacco Use Smoking Status *Q: Never Smoker - Caffeine Use Caffeine Use: Reports: Coffee - Recreational Drug Use Recreational Drug Use: No ED ROS GENERAL - Review of Systems Review Of Systems: See Below Constitutional: Reports: No Symptoms. Denies: Fever, Chills HEENT: Reports: No Symptoms Respiratory: Reports: No Symptoms. Denies: Shortness of Breath Cardiovascular: Reports: No Symptoms GI/Abdominal: Reports: Abdominal Pain, Nausea. Denies: Vomiting : Reports: No Symptoms Musculoskeletal: Reports: No Symptoms Skin: Reports: No Symptoms Neurological: Reports: No Symptoms ED EXAM, GI/ABD - Physical Exam Exam: See Below Exam Limited By: No Limitations General Appearance: Alert, WD/WN, Mild Distress Eyes: Bilateral: Normal Appearance Ears: Normal External Exam, Normal Canal, Hearing Grossly Normal Nose: Normal Inspection, No Blood Throat/Mouth: Normal Inspection, Normal Lips, Normal Oropharynx, Normal Voice, No Airway Compromise Head: Atraumatic, Normocephalic Neck: Normal Inspection Respiratory/Chest: No Respiratory Distress, Lungs Clear, Normal Breath Sounds, No Accessory Muscle Use Cardiovascular: Regular Rate, Rhythm, No Edema GI/Abdominal Exam: Normal Bowel Sounds, Soft, No Distention, Tender (Between epigastrium and RUQ). No: Non-Tender, Distended, Hernia Back Exam: Normal Inspection Extremities: Normal Inspection, Normal Range of Motion, Non-Tender, No Pedal Edema Neurological: Alert, Oriented, CN II-XII Intact, Normal Cognition, No Motor/Sensory Deficits Psychiatric: Normal Affect, Normal Mood Skin Exam: Warm, Dry, Intact, Normal Color, No Rash Course - Vital Signs Text/Narrative:: Dr. Azar called @ 1315h, Dr. Echeverria called @ 1320h, will admit to his service with surgical consult. Last Recorded V/S: Last Vital Signs Temp 37.1 C 04/22/20 10:30 Pulse 98 04/22/20 10:30 Resp 16 04/22/20 10:30 BP 137/71 04/22/20 10:30 Pulse Ox 96 04/22/20 10:30 - Orders/Labs/Meds Orders: Active Orders 24 hr Category Date Time Status Iopamidol [Isovue-300 (61%)] Med 04/22/20 11:45 Active 100 ml IV . DIRECTED Lactated Ringers [Ringers, Lactated] 1,000 ml Med 04/22/20 10:45 Active IV ASDIRECTED Sodium Chloride 0.9% [Normal Saline] 1,000 ml Med 04/22/20 13:15 Active IV ASDIRECTED Sodium Chloride 0.9% [Normal Saline] 75 ml Med 04/22/20 11:45 Active IV ASDIRECTED Medication Orders Lactated Ringer's (Ringers, Lactated) 1,000 mls @ 500 mls/hr IV ASDIRECTED MOR Last Admin: 04/22/20 10:56 Dose: 500 mls/hr Documented by: NEPTALI Sodium Chloride (Normal Saline) 75 mls @ 3 mls/sec IV ASDIRECTED MOR Stop: 04/22/20 14:00 Last Admin: 04/22/20 13:06 Dose: 3 mls/sec Documented by: Admin: 04/22/20 12:28 Dose: 3 mls/sec Documented by: [place] Sodium Chloride (Normal Saline) 1,000 mls @ 150 mls/hr IV ASDIRECTED MOR Iopamidol (Isovue-300 (61%)) 100 ml IV . DIRECTED MOR Stop: 04/22/20 14:00 Last Admin: 04/22/20 13:06 Dose: 100 ml Documented by: Admin: 04/22/20 12:28 Dose: 100 ml Documented by: [place] Labs: Laboratory Tests 04/22/20 04/22/20 04/22/20 Range/Units 10:45 10:45 10:53 WBC 11.4 H (4.5-11.0) K/uL RBC 4.92 (3.30-5.50) M/uL Hgb 14.4 D (12.0-15.0) g/dL Hct 43.0 (36.0-48.0) % MCV 87 (80-98) fL MCH 29 (27-31) pg MCHC 34 (32-36) % Plt Count 250 (150-400) K/uL Sodium 138 L (140-148) mmol/L Potassium 4.3 (3.6-5.2) mmol/L Chloride 104 (100-108) mmol/L Carbon Dioxide 22 (21-32) mmol/L Anion Gap 16.3 H (5.0-14.0) mmol/L BUN 23 H D (7-18) mg/dL Creatinine 0.8 (0.6-1.0) mg/dL Est Cr Clr Drug Dosing 73.46 mL/min Estimated GFR (MDRD) > 60 (>60) Glucose 115 H (74-106) mg/dL Calcium 8.5 (8.5-10.1) mg/dL Total Bilirubin 0.6 D (0.2-1.0) mg/dL AST 20 (15-37) U/L ALT 21 (12-78) U/L Alkaline Phosphatase 61 (46-116) U/L C-Reactive Protein (0.0-0.3) mg/dL Total Protein 7.4 (6.4-8.2) g/dL Albumin 4.2 (3.4-5.0) g/dL Globulin 3.2 (2.3-3.5) g/dL Albumin/Globulin Ratio 1.3 (1.2-2.2) Lipase 95 (73-393) U/L 04/22/20 Range/Units 11:51 WBC (4.5-11.0) K/uL RBC (3.30-5.50) M/uL Hgb (12.0-15.0) g/dL Hct (36.0-48.0) % MCV (80-98) fL MCH (27-31) pg MCHC (32-36) % Plt Count (150-400) K/uL Sodium (140-148) mmol/L Potassium (3.6-5.2) mmol/L Chloride (100-108) mmol/L Carbon Dioxide (21-32) mmol/L Anion Gap (5.0-14.0) mmol/L BUN (7-18) mg/dL Creatinine (0.6-1.0) mg/dL Est Cr Clr Drug Dosing mL/min Estimated GFR (MDRD) (>60) Glucose (74-106) mg/dL Calcium (8.5-10.1) mg/dL Total Bilirubin (0.2-1.0) mg/dL AST (15-37) U/L ALT (12-78) U/L Alkaline Phosphatase (46-116) U/L C-Reactive Protein 0.79 H (0.0-0.3) mg/dL Total Protein (6.4-8.2) g/dL Albumin (3.4-5.0) g/dL Globulin (2.3-3.5) g/dL Albumin/Globulin Ratio (1.2-2.2) Lipase (73-393) U/L Meds: Medications Generic Name Dose Route Start Last Admin Trade Name Freq PRN Reason Stop Dose Admin Lactated Ringer's 1,000 mls @ 500 mls/hr 04/22/20 10:45 04/22/20 10:56 Ringers, Lactated IV 500 mls/hr ASDIRECTED MOR Administration Sodium Chloride 75 mls @ 3 mls/sec 04/22/20 11:45 04/22/20 13:06 Normal Saline IV 04/22/20 14:00 3 mls/sec ASDIRECTED MOR Administration Sodium Chloride 1,000 mls @ 150 mls/hr 04/22/20 13:15 Normal Saline IV ASDIRECTED MOR Iopamidol 100 ml 04/22/20 11:45 04/22/20 13:06 Isovue-300 (61%) IV 04/22/20 14:00 100 ml . DIRECTED MOR Administration Discontinued Medications Generic Name Dose Route Start Last Admin Trade Name Freq PRN Reason Stop Dose Admin Fentanyl 50 mcg 04/22/20 10:36 04/22/20 10:58 Sublimaze IVPUSH 04/22/20 10:37 Not Given ONETIME ONE Fentanyl 50 mcg 04/22/20 12:13 04/22/20 12:25 Sublimaze IVPUSH 04/22/20 12:14 50 mcg ONETIME ONE Administration Fentanyl 50 mcg 04/22/20 12:40 04/22/20 12:45 Sublimaze IVPUSH 04/22/20 12:41 50 mcg ONETIME ONE Administration Ketorolac Tromethamine 15 mg 04/22/20 10:46 04/22/20 10:57 Toradol IVPUSH 04/22/20 10:47 15 mg ONETIME ONE Administration Ondansetron HCl 4 mg 04/22/20 10:36 04/22/20 10:51 Zofran IVPUSH 04/22/20 10:37 4 mg ONETIME ONE Administration Sodium Chloride 10 ml 04/22/20 11:39 04/22/20 13:06 Saline Flush FLUSH 04/22/20 11:40 10 ml ONETIME ONE Administration Departure - Departure Time of Disposition: 13:30 Disposition: Admitted As Inpatient 65 Condition: Fair Clinical Impression: RUQ abdominal pain - Discharge Information *PRESCRIPTION DRUG MONITORING PROGRAM REVIEWED*: No *COPY OF PRESCRIPTION DRUG MONITORING REPORT IN PATIENT KIT: No Referrals: Mylene Zamarripa CNM [Primary Care Provider] - Forms: ED Department Discharge Sepsis Event Note (ED) - Evaluation Sepsis Screening Result: No Definite Risk - Focused Exam Vital Signs: Vital Signs Temp Pulse Resp BP Pulse Ox 04/22/20 10:30 37.1 C 98 16 137/71 96 04/22/20 10:25 37.1 C 98 16 137/71 96 - My Orders Last 24 Hours: My Active Orders 04/22/20 10:45 Lactated Ringers [Ringers, Lactated] 1,000 ml IV ASDIRECTED 04/22/20 11:45 Iopamidol [Isovue-300 (61%)] 100 ml IV . DIRECTED Sodium Chloride 0.9% [Normal Saline] 75 ml IV ASDIRECTED 04/22/20 13:15 Sodium Chloride 0.9% [Normal Saline] 1,000 ml IV ASDIRECTED - Assessment/Plan Last 24 Hours: My Active Orders 04/22/20 10:45 Lactated Ringers [Ringers, Lactated] 1,000 ml IV ASDIRECTED 04/22/20 11:45 Iopamidol [Isovue-300 (61%)] 100 ml IV . DIRECTED Sodium Chloride 0.9% [Normal Saline] 75 ml IV ASDIRECTED 04/22/20 13:15 Sodium Chloride 0.9% [Normal Saline] 1,000 ml IV ASDIRECTED
[2020-04-22] MEDS: Ketorolac 30 MG/ML SDV IVPUSH ONE ×2 (10:54→10:57)
[2020-04-22] MEDS: Sodium Chloride 0.9% 75 ML IV SCH ×2 (12:28→13:06)
[2020-04-22] MEDS: Sodium Chloride 0.9% 10 ML Syringe FLUSH ONE ×2 (12:28→13:06)
[2020-04-22] MEDS: Iopamidol 612 MG/ML 100 ML Bottle IV SCH ×2 (12:28→13:06)
--- NOTE | 2020-04-22 13:08 | CT ---
Abdomen Pelvis w Cont CLINICAL HISTORY: Right upper quadrant pain COMPARISON: December 2018. TECHNIQUE: Axial tomographic images are obtained from the dome of the diaphragm to the pubic symphysis with IV contrast enhancement. No oral contrast was used. Auto dosage reduction and iterative reconstruction techniques employed. FINDINGS: The lung bases are clear. The liver shows diffuse intrahepatic biliary dilatation. There is a stable cyst in the left lobe The gallbladder is been removed. The common bile duct measures 14 mm. Pancreatic duct is upper limits of normal at 3 mm. The spleen has a normal size and shape. There is been previous gastric surgery which may be a Leidy procedure. There is some soft tissue fullness in the gastroesophageal junction region. The pancreas shows no mass or inflammatory change. The adrenal glands appear normal bilaterally. The kidneys show no mass, stones or hydronephrosis. Ureters have normal course and caliber. Bladder has normal appearance. Uterus is midline. There are 2 cystic structures in the right adnexal region one measuring 3.3 x 3.1 cm anteriorly and one measuring 3.8 x 3.1 cm posteriorly. The appendix is not visualized. No inflammatory changes are seen in the right lower quadrant The aorta has a normal contour. There is no suspicious retroperitoneal adenopathy. IMPRESSION: Previous gastric surgery may represent a Leidy procedure. There is soft tissue fullness at the gastroesophageal junction region which may represent redundant mucosa related to surgery. Two Moderate-sized cysts in the right adnexal region Previous cholecystectomy with some intrahepatic biliary dilatation. Common bile duct measures 14 mm and is mild pancreatic ductal prominence. This is all likely postsurgical. MTDD
[2020-04-22] MEDS ORDERED: Sodium Chloride 0.9% 1,000 ML IV SCH (13:15)
--- NOTE | 2020-04-22 14:10 | PCM.HP.2 ---
H&P History of Present Illness - General Date of Service: 04/22/20 Admit Problem/Dx: Admission Diagnosis/Problem Admission Diagnosis/Problem Nausea and vomiting Source of Information: Patient, Family, Provider, RN Notes Reviewed History Limitations: Reports: No Limitations - History of Present Illness Initial Comments - Free Text/Narative: Ms. Roblero is a 44-year-old woman who was admitted through the emergency department with right upper quadrant abdominal pain, nausea, and vomiting. She has a history of 2 previous Leidy fundoplication's as well as a cholecystectomy. She was feeling well until about 330 this morning when she awoke probably with pain in her right upper quadrant nausea and vomiting. Pain is described as an ache which does wax and wane, does not radiate, and she has noted no precipitating or relieving factors. She presented to the emergency department for further evaluation. White blood cell count is modestly elevated and there is some mild elevation in CRP. She denies any fevers, chills, or sweats. CT scan of the abdomen and pelvis showed no obvious potential source of her current symptoms. Findings were reviewed by Dr. Azar who requested the patient be admitted for pain and symptom management, with the EGD in the a.m. Right Upper Abdominal Pain Score (Numeric/FACES): 6 - Related Data Allergies/Adverse Reactions: Allergies Allergy/AdvReac Type Severity Reaction Status Date / Time codeine Allergy Swelling Verified 09/03/19 15:51 hydromorphone HCl Allergy Swelling Verified 09/03/19 15:51 [From Dilaudid] Home Medications: Home Meds traZODone 100 mg PO BEDTIME 03/14/16 [History] Ondansetron [Zofran ODT] 4 mg PO Q4H PRN #30 tab.dis 01/06/19 [Rx] Lactobacillus Acidophilus [Probiotic] 1 tab PO DAILY 05/27/19 [History] Naproxen [Naprosyn] 500 mg PO Q12HR PRN 30 Days #60 tab 05/27/19 [Rx] Omeprazole 40 mg PO DAILY 08/27/19 [History] Multivitamin [Multi-Day Vitamins] 1 tab PO DAILY 11/11/19 [History] Past Medical History HEENT History: Reports: Impaired Vision Cardiovascular History: Reports: Other (See Below) Other Cardiovascular History: occasional PVC Respiratory History: Reports: None Gastrointestinal History: Reports: Cholelithiasis, Gastritis, GERD Genitourinary History: Reports: Renal Calculus [employer] History: Reports: Polycystic Ovaries, Musculoskeletal History: Reports: Back Pain, Chronic, Other (See Below) Other Musculoskeletal History: L foot pain Neurological History: Reports: None Psychiatric History: Reports: None Endocrine/Metabolic History: Reports: Obesity/BMI 30+ Hematologic History: Reports: None Immunologic History: Reports: None Oncologic (Cancer) History: Reports: None Dermatologic History: Reports: None - Infectious Disease History Infectious Disease History: Reports: Chicken Pox - Past Surgical History HEENT Surgical History: Reports: LASIK, Other (See Below) Cardiovascular Surgical History: Reports: None GI Surgical History: Reports: Cholecystectomy, EGD, Leidy Fundoplication Female Surgical History: Reports: Other (See Below) Other Female Surgeries/Procedures: cervical/ uterine polyp removed Endocrine Surgical History: Reports: None Musculoskeletal Surgical History: Reports: Arthroscopic Knee Social & Family History - Tobacco Use Smoking Status *Q: Never Smoker - Caffeine Use Caffeine Use: Reports: Coffee - Recreational Drug Use Recreational Drug Use: No H&P Review of Systems - Review of Systems: Review Of Systems: See Below General: Reports: Malaise, Weakness, Decreased Appetite. Denies: Fever, Chills HEENT: Reports: No Symptoms Pulmonary: Reports: No Symptoms Cardiovascular: Reports: No Symptoms Gastrointestinal: Reports: Abdominal Pain, Nausea, Vomiting. Denies: Diarrhea, Difficulty Swallowing, Distension, Hematemesis, Hematochezia, Melena Genitourinary: Reports: No Symptoms Musculoskeletal: Reports: No Symptoms Skin: Reports: No Symptoms Psychiatric: Reports: No Symptoms Neurological: Reports: No Symptoms Hematologic/Lymphatic: Reports: No Symptoms Immunologic: Reports: No Symptoms Exam - Exam Exam: See Below - Vital Signs Vital Signs: Last Vital Signs Temp 98.7 F 04/22/20 10:30 Pulse 98 04/22/20 10:30 Resp 16 04/22/20 10:30 BP 137/71 04/22/20 10:30 Pulse Ox 96 04/22/20 10:30 Weight: 145 lb - Exam Quality Assessment: DVT Prophylaxis General: Alert, Oriented, Cooperative, Moderate Distress HEENT: Conjunctiva Clear, Hearing Intact, Mucosa Moist & [place], Normal Nasal Septum, Posterior Pharynx Clear, Pupils Equal Neck: Supple, Trachea Midline, +2 Carotid Pulse wo Bruit Lungs: Clear to Auscultation, Normal Respiratory Effort Cardiovascular: Regular Rate, Regular Rhythm, Normal S1, Normal S2. No: Systolic Murmur, Diastolic Murmur GI/Abdominal Exam: Soft, No Organomegaly, Tender. No: Distended, Guarding, Rigid, Rebound Back Exam: Normal Inspection, Full Range of Motion Extremities: Non-Tender, No Pedal Edema Skin: Warm, Dry, Intact Neurological: Cranial Nerves Intact, Strength Equal Bilateral, Normal Speech, Normal Tone, Sensation Intact. No: Focal Deficit Neuro Extensive - Mental Status: Alert, Oriented x3, Normal Mood/Affect, Normal Cognition, Memory Intact - Patient Data Lab Results Last 24 hrs: Laboratory Results - last 24 hr 04/22/20 04/22/20 04/22/20 Range/Units 10:45 10:45 10:53 WBC 11.4 H (4.5-11.0) K/uL RBC 4.92 (3.30-5.50) M/uL Hgb 14.4 D (12.0-15.0) g/dL Hct 43.0 (36.0-48.0) % MCV 87 (80-98) fL MCH 29 (27-31) pg MCHC 34 (32-36) % Plt Count 250 (150-400) K/uL Sodium 138 L (140-148) mmol/L Potassium 4.3 (3.6-5.2) mmol/L Chloride 104 (100-108) mmol/L Carbon Dioxide 22 (21-32) mmol/L Anion Gap 16.3 H (5.0-14.0) mmol/L BUN 23 H D (7-18) mg/dL Creatinine 0.8 (0.6-1.0) mg/dL Est Cr Clr Drug Dosing 73.46 mL/min Estimated GFR (MDRD) > 60 (>60) Glucose 115 H (74-106) mg/dL Calcium 8.5 (8.5-10.1) mg/dL Total Bilirubin 0.6 D (0.2-1.0) mg/dL AST 20 (15-37) U/L ALT 21 (12-78) U/L Alkaline Phosphatase 61 (46-116) U/L C-Reactive Protein (0.0-0.3) mg/dL Total Protein 7.4 (6.4-8.2) g/dL Albumin 4.2 (3.4-5.0) g/dL Globulin 3.2 (2.3-3.5) g/dL Albumin/Globulin Ratio 1.3 (1.2-2.2) Lipase 95 (73-393) U/L 04/22/20 Range/Units 11:51 WBC (4.5-11.0) K/uL RBC (3.30-5.50) M/uL Hgb (12.0-15.0) g/dL Hct (36.0-48.0) % MCV (80-98) fL MCH (27-31) pg MCHC (32-36) % Plt Count (150-400) K/uL Sodium (140-148) mmol/L Potassium (3.6-5.2) mmol/L Chloride (100-108) mmol/L Carbon Dioxide (21-32) mmol/L Anion Gap (5.0-14.0) mmol/L BUN (7-18) mg/dL Creatinine (0.6-1.0) mg/dL Est Cr Clr Drug Dosing mL/min Estimated GFR (MDRD) (>60) Glucose (74-106) mg/dL Calcium (8.5-10.1) mg/dL Total Bilirubin (0.2-1.0) mg/dL AST (15-37) U/L ALT (12-78) U/L Alkaline Phosphatase (46-116) U/L C-Reactive Protein 0.79 H (0.0-0.3) mg/dL Total Protein (6.4-8.2) g/dL Albumin (3.4-5.0) g/dL Globulin (2.3-3.5) g/dL Albumin/Globulin Ratio (1.2-2.2) Lipase (73-393) U/L Result Diagrams: 04/22/20 10:45 04/22/20 10:45 Sepsis Event Note - Evaluation Sepsis Screening Result: No Definite Risk - Focused Exam Vital Signs: Vital Signs Temp Pulse Resp BP Pulse Ox 04/22/20 10:30 98.7 F 98 16 137/71 96 04/22/20 10:25 98.7 F 98 16 137/71 96 Date Exam was Performed: 04/22/20 Time Exam was Performed: 14:39 *Q Meaningful Use (ADM) - VTE *Q VTE Pharmacological Contraindications *Q: Patient Scheduled Surgery - VTE Risk Assess *Q Each Risk Factor Represents 1 Point: Age 41 - 59 years Total Score 1 Point Risk Factors: 1 Each Risk Factor Represents 2 Points: None Total Score 2 Point Risk Factors: 0 Each Risk Factor Represents 3 Points: None Total Score 3 Point Risk Factors: 0 Each Risk Factor Represents 5 Points: None Total Score 5 Point Risk Factors: 0 Venous Thromboembolism Risk Factor Score *Q: 1 Problem List Initiated/Reviewed/Updated: Yes Orders Last 24hrs: Active Orders 24 hr Category Date Time Status Patient Status Manage Transfer [TRANSFER] Routine ADT 04/22/20 14:03 Active Lactated Ringers [Ringers, Lactated] 1,000 ml Med 04/22/20 10:45 Active IV ASDIRECTED Sodium Chloride 0.9% [Normal Saline] 1,000 ml Med 04/22/20 13:15 Active IV ASDIRECTED Resuscitation Status Routine Resus Stat 04/22/20 14:05 Ordered Medication Orders Lactated Ringer's (Ringers, Lactated) 1,000 mls @ 500 mls/hr IV ASDIRECTED [facility] Last Admin: 04/22/20 10:56 Dose: 500 mls/hr Documented by: [id number] Sodium Chloride (Normal Saline) 1,000 mls @ 150 mls/hr IV ASDIRECTED [facility] Last Admin: 04/22/20 13:34 Dose: 150 mls/hr Documented by: GRADY Assessment/Plan Comment:: ASSESSMENT AND PLAN RIGHT UPPER QUADRANT ABDOMINAL PAIN WITH NAUSEA AND VOMITING-she has had 2 previous Leidy fundoplication's and is status post cholecystectomy. CT scan shows no obvious abnormalities to explain current symptoms. Likely secondary to ulcer disease versus gastritis duodenitis. -Clear liquid diet, n.p.o. after midnight -Pain and nausea medication as needed -IV fluids for hydration -Consult Dr. Azar for EGD in a.m. -Protonix 40 mg IV every 12 hours MAINTENANCE ISSUES -DVT prophylaxis; SCUDs -GI prophylaxis; Protonix as above -Porras catheter; not indicated -Nutrition; clear liquid diet, n.p.o. after midnight -Nicotine dependence; not required CODE STATUS-FULL CODE ADMISSION STATUS-patient will be admitted to inpatient status, expect at least a 2 night hospital stay for evaluation and management of problems as outlined above. At the time of this admission I do not reasonably expected evaluation and management of this problem will require more than a 96 hour hospital stay. DISPOSITION-anticipate discharge to home after the hospital stay. PRIMARY CARE PROVIDER-Mylene Zamarripa - Mortality Measure Prognosis:: Good
[2020-04-22] MEDS ORDERED: Acetaminophen 325 MG Tab PO PRN (15:06)
[2020-04-22] MEDS ORDERED: Ondansetron 4 MG/2 ML SDV IV PRN (15:06)
[2020-04-22] MEDS ORDERED: fentaNYL 100 MCG/2 ML SDV IVPUSH PRN (15:06)
[2020-04-22] MEDS ORDERED: Sodium Chloride 0.9% 10 ML Syringe FLUSH PRN (15:06)
[2020-04-22] MEDS ORDERED: Polyethylene Glycol 3350 Powder 17 GM Packet PO PRN (15:06)
[2020-04-22] MEDS ORDERED: diphenhydrAMINE 25 MG Cap PO PRN (15:25)
[2020-04-22] MEDS: traMADol 50 MG Tab PO PRN ×2 (16:46→21:12)
[2020-04-22] MEDS: Pantoprazole 40 MG Vial IV SCH (16:49)
[2020-04-22] MEDS: Lactated Ringers 1,000 ML IV SCH (18:25)
[2020-04-22] MEDS: traZODone 50 MG Tab PO SCH (21:12)
[2020-04-23] MEDS: Lactated Ringers 1,000 ML IV SCH ×2 (02:28→11:21)
[2020-04-23] MEDS: Pantoprazole 40 MG Vial IV SCH ×2 (04:27→17:30)
[2020-04-23] MEDS ORDERED: Propofol 200 MG/20 ML SDV ONE (07:44)
[2020-04-23] MEDS ORDERED: Midazolam 1 MG/ML 2 ML SDV ONE (07:44)
[2020-04-23] MEDS ORDERED: Glycopyrrolate 0.2 MG/ML 2 ML SDV IVPUSH ONE (08:45)
[2020-04-23] MEDS: Sucralfate 1 GM Tab PO SCH ×3 (11:14→22:01)
[2020-04-23] MEDS: Lactobacillus Rhamnosus GG (Probiotic) Cap PO SCH (11:14)
--- NOTE | 2020-04-23 12:03 | PCM.PN ---
- General Info Date of Service: 04/23/20 Subjective Update: Ms. Roblero feels improved with less abdominal pain and no nausea or vomiting. EGD performed by Dr. Azar this morning showed evidence of gastritis. H. pylori breath test and PATTI tests are pending. Functional Status: Reports: Pain Controlled, Ambulating, Urinating - Review of Systems General: Reports: No Symptoms Pulmonary: Reports: No Symptoms Cardiovascular: Reports: No Symptoms Gastrointestinal: Reports: Abdominal Pain. Denies: Diarrhea, Difficulty Swallowing, Nausea, Vomiting - Patient Data Vitals - Most Recent: Last Vital Signs Temp 96.9 F 04/23/20 09:37 Pulse 62 04/23/20 11:30 Resp 16 04/23/20 11:30 BP 99/60 04/23/20 11:30 Pulse Ox 97 04/23/20 11:30 Weight - Most Recent: 146 lb 9.613 oz I&O - Last 24 Hours: Intake & Output 04/22/20 04/23/20 04/23/20 22:59 06:59 14:59 Intake Total 385 1602 50 Balance 385 1602 50 Lab Results Last 24 Hours: Laboratory Results - last 24 hr 04/22/20 04/22/20 04/23/20 Range/Units 11:51 17:09 03:42 WBC 5.5 (4.5-11.0) K/uL RBC 4.07 (3.30-5.50) M/uL Hgb 11.7 L D (12.0-15.0) g/dL Hct 35.9 L (36.0-48.0) % MCV 88 (80-98) fL MCH 29 (27-31) pg MCHC 33 (32-36) % Plt Count 199 (150-400) K/uL Neut % (Auto) 82 H (36-66) % Lymph % (Auto) 10 L (24-44) % [place] % (Auto) 8 H (2-6) % Eos % (Auto) 0 L (2-4) % Baso % (Auto) 0 (0-1) % Sodium (140-148) mmol/L Potassium (3.6-5.2) mmol/L Chloride (100-108) mmol/L Carbon Dioxide (21-32) mmol/L Anion Gap (5.0-14.0) mmol/L BUN (7-18) mg/dL Creatinine (0.6-1.0) mg/dL Est Cr Clr Drug Dosing mL/min Estimated GFR (MDRD) (>60) Glucose (74-106) mg/dL Calcium (8.5-10.1) mg/dL C-Reactive Protein 0.79 H (0.0-0.3) mg/dL SARS Virus RNA (PCR) Negative (NEGATIVE) 04/23/20 Range/Units 03:42 WBC (4.5-11.0) K/uL RBC (3.30-5.50) M/uL Hgb (12.0-15.0) g/dL Hct (36.0-48.0) % MCV (80-98) fL MCH (27-31) pg MCHC (32-36) % Plt Count (150-400) K/uL Neut % (Auto) (36-66) % Lymph % (Auto) (24-44) % [place] % (Auto) (2-6) % Eos % (Auto) (2-4) % Baso % (Auto) (0-1) % Sodium 138 L (140-148) mmol/L Potassium 3.8 (3.6-5.2) mmol/L Chloride 107 (100-108) mmol/L Carbon Dioxide 24 (21-32) mmol/L Anion Gap 10.8 (5.0-14.0) mmol/L BUN 13 (7-18) mg/dL Creatinine 0.6 (0.6-1.0) mg/dL Est Cr Clr Drug Dosing 97.95 mL/min Estimated GFR (MDRD) > 60 (>60) Glucose 84 (74-106) mg/dL Calcium 7.8 L (8.5-10.1) mg/dL C-Reactive Protein (0.0-0.3) mg/dL SARS Virus RNA (PCR) (NEGATIVE) Med Orders - Current: Current Medications Acetaminophen (Tylenol) 650 mg PO Q4H PRN PRN Reason: Pain (Mild 1-3)/fever Diphenhydramine HCl (Benadryl) 25 mg PO Q4H PRN PRN Reason: Allergies Last Admin: 04/22/20 16:03 Dose: 25 mg Documented by: Lactobacillus Rhamnosus (Culturelle) 1 cap PO DAILY [facility] Last Admin: 04/23/20 11:14 Dose: 1 cap Documented by: Ondansetron HCl (Zofran) 4 mg IV Q4H PRN PRN Reason: Nausea/Vomiting Last Admin: 04/22/20 16:47 Dose: 4 mg Documented by: Pantoprazole Sodium (Protonix Iv) 40 mg IV Q12H [facility] Last Admin: 04/23/20 04:27 Dose: 40 mg Documented by: Polyethylene Glycol (Miralax) 17 gm PO DAILY PRN PRN Reason: Constipation Sodium Chloride (Saline Flush) 10 ml FLUSH ASDIRECTED PRN PRN Reason: Keep Vein Open Sucralfate (Carafate) 1 gm PO QID [facility] Last Admin: 04/23/20 11:14 Dose: 1 gm Documented by: Tramadol HCl (Ultram) 50 mg PO Q4H PRN PRN Reason: Pain Last Admin: 04/22/20 21:12 Dose: 50 mg Documented by: Trazodone HCl (Trazodone) 100 mg PO BEDTIME [facility] Last Admin: 04/22/20 21:12 Dose: 100 mg Documented by: Discontinued Medications Fentanyl (Sublimaze) 50 mcg IVPUSH ONETIME ONE Stop: 04/22/20 10:37 Last Admin: 04/22/20 10:58 Dose: Not Given Documented by: Fentanyl (Sublimaze) 50 mcg IVPUSH ONETIME ONE Stop: 04/22/20 12:14 Last Admin: 04/22/20 12:25 Dose: 50 mcg Documented by: Fentanyl (Sublimaze) 50 mcg IVPUSH ONETIME ONE Stop: 04/22/20 12:41 Last Admin: 04/22/20 12:45 Dose: 50 mcg Documented by: Fentanyl (Sublimaze) 50 mcg IVPUSH Q4H PRN PRN Reason: Pain (severe 7-10) Glycopyrrolate (Glycopyrrolate) 0.4 mg IVPUSH ONCALL ONE Stop: 04/23/20 08:46 Last Admin: 04/23/20 08:40 Dose: 0.4 mg Documented by: Lactated Ringer's (Ringers, Lactated) 1,000 mls @ 500 mls/hr IV ASDIRECTED [facility] Last Admin: 04/22/20 10:56 Dose: 500 mls/hr Documented by: Sodium Chloride (Normal Saline) 75 mls @ 3 mls/sec IV ASDIRECTED [facility] Stop: 04/22/20 14:00 Last Admin: 04/22/20 13:06 Dose: 3 mls/sec Documented by: Sodium Chloride (Normal Saline) 1,000 mls @ 150 mls/hr IV ASDIRECTED [facility] Last Admin: 04/22/20 13:34 Dose: 150 mls/hr Documented by: Lactated Ringer's (Ringers, Lactated) 1,000 mls @ 125 mls/hr IV ASDIRECTED [facility] Last Admin: 04/23/20 11:21 Dose: 125 mls/hr Documented by: Iopamidol (Isovue-300 (61%)) 100 ml IV . DIRECTED [facility] Stop: 04/22/20 14:00 Last Admin: 04/22/20 13:06 Dose: 100 ml Documented by: Ketorolac Tromethamine (Toradol) 15 mg IVPUSH ONETIME ONE Stop: 04/22/20 10:47 Last Admin: 04/22/20 10:57 Dose: 15 mg Documented by: Midazolam HCl (Versed 1 Mg/Ml) Confirm Administered Dose 2 mg .ROUTE .STK-MED ONE Stop: 04/23/20 07:45 Ondansetron HCl (Zofran) 4 mg IVPUSH ONETIME ONE Stop: 04/22/20 10:37 Last Admin: 04/22/20 10:51 Dose: 4 mg Documented by: Propofol (Diprivan 20 Ml) Confirm Administered Dose 200 mg .ROUTE .STK-MED ONE Stop: 04/23/20 07:45 Sodium Chloride (Saline Flush) 10 ml FLUSH ONETIME ONE Stop: 04/22/20 11:40 Last Admin: 04/22/20 13:06 Dose: 10 ml Documented by: - Exam Quality Assessment: DVT Prophylaxis General: Alert, Oriented, Cooperative, Mild Distress Lungs: Clear to Auscultation, Normal Respiratory Effort Cardiovascular: Regular Rate, Regular Rhythm, No Murmurs GI/Abdominal Exam: Soft, No Organomegaly, Tender. No: Distended, Guarding, Rigid, Rebound Extremities: Non-Tender, No Pedal Edema Sepsis Event Note - Evaluation Sepsis Screening Result: No Definite Risk - Focused Exam Vital Signs: Vital Signs Temp Temp Pulse Resp BP Pulse Ox 04/23/20 11:30 62 16 99/60 97 04/23/20 10:30 62 16 98/49 L 97 04/23/20 10:15 67 16 92/46 L 97 04/23/20 10:00 65 16 96/43 L 97 04/23/20 09:45 62 16 105/51 L 97 04/23/20 09:37 96.9 F 75 16 91/42 L 98 04/23/20 09:20 97.7 F 77 14 118/75 97 04/23/20 09:15 80 14 120/78 97 04/23/20 09:10 76 14 125/80 99 04/23/20 09:05 76 14 118/73 99 04/23/20 09:00 97.9 F 80 16 16/76 L 99 04/23/20 02:29 98.7 F 60 18 104/59 L 97 Date Exam was Performed: 04/23/20 Time Exam was Performed: 12:00 - Problem List Review Problem List Initiated/Reviewed/Updated: Yes - My Orders Last 24 Hours: My Active Orders 04/22/20 14:05 Resuscitation Status Routine 04/22/20 15:06 Acetaminophen [Tylenol] 650 mg PO Q4H PRN Ondansetron [Zofran] 4 mg IV Q4H PRN Sodium Chloride 0.9% [Saline Flush] 10 ml FLUSH ASDIRECTED PRN polyethylene glycoL 3350 [MiraLAX] 17 gm PO DAILY PRN 04/22/20 15:06 Patient Status [ADT] Routine Ambulate [RC] QID Height and Weight [RC] DAILY Intake and Output [RC] QSHIFT Notify Provider Vital Signs [RC] ASDIRECTED Overnight Pulse Oximetry [RC] Click to Edit Oxygen Therapy [RC] PRN Peripheral IV Care [RC] . DIRECTED Up ad [place]olee [RC] ASDIRECTED Up to Chair [RC] QID VTE/DVT Education [RC] Per Unit Routine Vital Signs [RC] Q4H Peripheral IV Insertion Adult [OM.PC] Routine Pulse Oximetry Continuous Monitoring [OM.PC] Routine Sequential Compression Device [OM.PC] Per Unit Routine 04/22/20 15:25 diphenhydrAMINE [Benadryl] 25 mg PO Q4H PRN traMADol [Ultram] 50 mg PO Q4H PRN 04/22/20 16:00 Pantoprazole [ProTONIX IV] 40 mg IV Q12H 04/22/20 21:00 traZODone 100 mg PO BEDTIME 04/23/20 09:00 Lactobacillus Rhamnosus GG [Culturelle] 1 cap PO DAILY 04/23/20 11:59 Convert IV to Saline Lock [OM.PC] Routine - Plan Plan:: ASSESSMENT AND PLAN GASTRITIS-she has had 2 previous Leidy fundoplication's and is status post cholecystectomy. CT scan shows no obvious abnormalities to explain current symptoms. Symptomatically improved with current management, EGD today shows evidence of gastritis -Full liquid diet -Pain and nausea medication as needed -Saline lock IV -Surgical follow-up per Dr. Azar -Protonix 40 mg IV every 12 hours -Carafate 4 times daily -H. pylori breath test and PATTI tests are pending MAINTENANCE ISSUES -DVT prophylaxis; SCUDs -GI prophylaxis; Protonix as above -Porras catheter; not indicated -Nutrition; clear liquid diet, n.p.o. after midnight -Nicotine dependence; not required CODE STATUS-FULL CODE ADMISSION STATUS-patient will be admitted to inpatient status, expect at least a 2 night hospital stay for evaluation and management of problems as outlined above. At the time of this admission I do not reasonably expected evaluation and management of this problem will require more than a 96 hour hospital stay. DISPOSITION-anticipate discharge to home after the hospital stay. PRIMARY CARE PROVIDER-Mylene Zamarripa
[2020-04-23] MEDS: traMADol 50 MG Tab PO PRN ×2 (13:07→22:04)
--- NOTE | 2020-04-23 16:10 | CONS ---
DATE OF SERVICE: 04/23/2020 REFERRING PHYSICIAN: CONSULTING PHYSICIAN: Alexa Dewitt PA-C HISTORY OF PRESENT ILLNESS: Cecilia was asked to the surgery department to be seen in consultation for right upper quadrant abdominal pain. Cecilia states on 04/22/2020 around 0330, she woke up very nauseated and had emesis. She did come to work, worked about an hour, and continued to have the right upper quadrant abdominal pain. She presented to the ER and was admitted to the hospital for evaluation and EGD. She has history of 2 previous Leidy fundoplications and has had a cholecystectomy. ALLERGIES: TO CODEINE AND DILAUDID. HOME MEDICATIONS: Trazodone 100 mg at bedtime; naproxen 500 mg every 12 hours p.r.n. for back pain, She takes maybe it a couple of times once every 2 weeks; omeprazole 40 mg daily; multivitamin daily; probiotic 1 tablet daily; and Zofran 4 mg every 4 hours as needed for pain. PAST MEDICAL HISTORY: See EMR. PAST SURGICAL HISTORY: See EMR. REVIEW OF SYSTEMS: CONSTITUTIONAL: Denies any fever, chills, or night sweats. Has felt weak, decreased appetite. HEENT: Negative. LUNGS: No cough. CARDIOVASCULAR: No chest pain. GASTROINTESTINAL: As above. States that she has had no dysphagia, diarrhea, or constipation. No red or black stools. GENITOURINARY: Negative. MUSCULOSKELETAL: Occasional low back pain but none today. SKIN: Negative. PSYCHIATRIC: No insomnia, depression, or anxiety. NEUROLOGIC: No headaches, dizziness, or loss of coordination. Remainder of review of systems negative for any pertinent positives and negatives. OBJECTIVE: GENERAL: Cecilia is a pleasant 44-year-old female. VITAL SIGNS: Height is 5 feet 3 inches, weight is 146 pounds. TPR at 0229 are 98.7, 60, and 18. Blood pressure 104/59. HEENT: Negative. NECK: Supple. HEART: Regular rate and rhythm. LUNGS: Clear. ABDOMEN: Tenderness in the right upper quadrant. EXTREMITIES: Without peripheral edema. ASSESSMENT: Right upper quadrant abdominal pain. PLAN: EGD with possible biopsies, IV local sedation. Fran Azar MD case to follow on 04/23/2020. Robinul 0.4 mg IV on-call to OR. Orders to be written post EGD. Thank you for this consultation. Alexa Dewitt PA-C /[id number]
[2020-04-23] MEDS: traZODone 50 MG Tab PO SCH (22:01)
[2020-04-24] MEDS: Pantoprazole 40 MG Vial IV SCH (03:20)
[2020-04-24] MEDS: Sucralfate 1 GM Tab PO SCH ×2 (06:11→09:18)
[2020-04-24] MEDS ORDERED: Potassium Chloride 20 MEQ Tab.ER PO ONE (09:00)
[2020-04-24] MEDS ORDERED: Magnesium Oxide 400 MG Tab PO SCH (09:00)
[2020-04-24] MEDS: traMADol 50 MG Tab PO PRN (09:23)
[2020-04-24] MEDS: Lactobacillus Rhamnosus GG (Probiotic) Cap PO SCH (09:24)
[2020-04-24 09:39] VITALS: BP 109/40; PULSE 66
--- NOTE | 2020-04-25 12:50 | DISCH ---
FINAL DIAGNOSES: 1. Antral gastritis. 2. Right upper quadrant abdominal pain with nausea and vomiting. 3. Intact Leidy fundoplication with no significant inflammation at esophagogastric junction. 4. History of cholelithiasis, status post cholecystectomy. 5. Polycystic ovary syndrome. 6. Chronic back pain. 7. Hypomagnesemia. OPERATIVE PROCEDURE: Esophagogastroduodenoscopy with antral biopsies for CLOtest that was done on 04/23/2020. SUMMARY: This is a 44-year-old female presenting with onset of right upper quadrant pain. This began around 3:30 in the morning on the date of admission and that is associated with more or less constant right upper quadrant pain with associated nausea and some emesis. No blood was noted in the emesis. The patient was seen in the emergency room with workup being essentially negative. CT scan showed no obvious abnormalities and the patient was admitted for initial observation and pain control. Laboratory on admission showed a white count of 11,400; on the day of discharge today, 04/24/2020, it is 5.1; hemoglobin remained stable in the 11.5 range. Electrolytes showed no significant abnormalities. Magnesium is somewhat low at 1.7. Lipase on admission was in the low range as well. Of note, her liver function test did bump up a little bit. These were entirely normal on admission, and on the day of discharge, AST went up at 161 and ALT to 448, alkaline phosphatase remained normal at 108, and bilirubin remained normal at 0.3. Following the endoscopy, the patient who has been on b.i.d. Protonix while in the hospital has had Carafate added and she is feeling quite a bit better, still very slight discomfort in the upper right abdomen, but is tolerating a diet. She will be discharged home at this point with addition of Carafate 1 g p.o. q.i.d. #120, refill x2. She already is on omeprazole 40 mg a day, we will continue that. Otherwise, she will be given prescription for tramadol 50 mg q.4 hours p.r.n. pain. Magnesium is slightly low at 1.7. We will give her a 3-month supply of magnesium oxide as well and she will be following up with Dr. Azar at [facility] on 05/05/2020. She will have labs drawn at the hospital the day before including CBC, CMP, magnesium, phosphate, amylase, and lipase and she is instructed to contact us should the pain worsen or other new symptoms develop.
[2020-04-26 19:11] LABS: H. PYLORI BREATH TEST Negative (Negative)
--- NOTE | 2020-04-28 11:12 | OR ---
DATE OF PROCEDURE: 04/23/2020 SURGEON: Fran Azar MD PREOPERATIVE DIAGNOSIS: Upper abdominal pain. POSTOPERATIVE DIAGNOSIS: Upper abdominal pain associated with antral gastritis with significant amount of retained gastric bile. OPERATIVE PROCEDURE: Esophagogastroduodenoscopy with antral biopsies for CLOtest. ANESTHESIA: IV sedation. INDICATIONS FOR PROCEDURE: This is a 44-year-old female presenting with picture of epigastric and right upper quadrant pain. Workup thus far has been negative. 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 The patient is presently on omeprazole and now presents with new onset of right upper quadrant pain with CT scan and other workup being negative. Plan is to proceed with upper GI endoscopy with biopsies as indicated. Potential risks including bleeding and perforation were discussed, and the patient wishes to proceed. DETAILS OF PROCEDURE: The patient was taken to the operating room and placed in a left lateral decubitus position. IV sedation was administered, after which the upper GI endoscope was passed orally through the length of the esophagus into the stomach with retroflexion view of the fundus, thereafter through the pyloric channel and into the junction of the third and fourth portions of the duodenum. Findings included normal hypopharynx, larynx, upper esophageal sphincter, and esophageal body. At the EG junction, no significant inflammation was present. The mucosal esophagogastric junction was noted to be 38 cm from the incisors, i.e. normal location. Placement of the scope into the stomach with retroflexion showed an intact Leidy fundoplication again entirely intraabdominal with no evidence of any recurrence of hiatal hernia. Within the stomach, there was some moderate amount of retained bile. There was some diffuse redness in the antrum consistent with antral gastritis without erosions or ulcers. Pyloric channel and duodenum to the junction of the 3rd and 4th portions were otherwise unremarkable. At this point, biopsies were obtained from the antrum and sent for CLOtest for H pylori. Minimal bleeding from biopsy site was seen and the procedure was then concluded. The patient was taken to the recovery room in satisfactory condition. At this point, we will continue the proton pump inhibitor therapy and run an H pylori breath test along with adding some Carafate. Fran Azar MD /[id number]
--- NOTE | 2020-04-28 16:28 | PN ---
DATE OF SERVICE: 04/23/2020 The patient underwent an upper endoscopy this morning for evaluation of some right upper quadrant and epigastric pain. The only finding was that of diffuse [id number] antral gastritis. A CLOtest was retrieved, which is pending. The plan at this point will be to begin a full liquid diet. We will add some Carafate 1 g q.i.d. and an H pylori breath test. We will check some labs again in the morning and follow the clinical course from that point. Fran Azar MD /[id number]
== END 2020-04-24 09:30 | disposition home or self-care (01) | DRG 241 ==
LOC: JP.ED 10:16 → JP.MS 14:03
PROVIDERS: ADMIT Hospitalist; ATTEND Hospitalist
PROC: 0DB68ZX Excision of Stomach, Via Natural or Artificial Opening Endoscopic, Diagnostic (ICD-10-PCS; principal; 2020-04-23)
DX: K29.70 Gastritis, unspecified, without bleeding (principal); Z90.49 Acquired absence of other specified parts of digestive tract; G89.29 Other chronic pain; M54.9 Dorsalgia, unspecified; H54.7 Unspecified visual loss; K21.9 Gastro-esophageal reflux disease without esophagitis; E66.9 Obesity, unspecified; Z88.5 Allergy status to narcotic agent; Z79.899 Other long term (current) drug therapy; Z87.442 Personal history of urinary calculi; Z68.25 Body mass index [BMI] 25.0-25.9, adult; Z20.828 Contact with and (suspected) exposure to other viral communicable diseases
CPT/HCPCS: 36415; 74177; 74177-26; 80048; 80053; 83013; 83690; 83735; 84100; 85025; 85027; 86140; 87081; 96374; 96375; 99221-AI; 99232; 99284; 99285-25; A9270-GY; C9113; J1885; J2250; J2405; J2704; J3010; J3490; J7030; J7050; J7120; Q9967; U0002

== ENCOUNTER 2023-01-19 05:59 | Day surgery (SDC) | payer BC ==
[2023-01-19] MEDS ORDERED: Dextrose 5%-Lactated Ringers 1,000 ML IV SCH (06:30)
[2023-01-19] MEDS ORDERED: Midazolam 1 MG/ML 2 ML SDV ONE (06:54)
[2023-01-19] MEDS ORDERED: Propofol 200 MG/20 ML SDV ONE (06:54)
[2023-01-19] MEDS ORDERED: fentaNYL 50 MCG/ML SDV ONE (06:54)
[2023-01-19] MEDS ORDERED: Glycopyrrolate 0.2 MG/ML 2 ML SDV IVPUSH ONE (07:00)
[2023-01-19 09:18] VITALS: BP 112/65; PULSE 59
== END 2023-01-19 09:35 | disposition home or self-care (01) ==
LOC: JP.SDS 05:59
PROVIDERS: ATTEND Surgery
DX: R13.10 Dysphagia, unspecified (principal); Z98.890 Other specified postprocedural states
CPT/HCPCS: 43239; 43245; 88305; J2250; J2704; J3490; J7121; J3010

== ENCOUNTER 2023-09-12 06:22 | Day surgery (SDC) | payer BC ==
[2023-09-12] MEDS ORDERED: Lactated Ringers 1,000 ML IV SCH (07:15)
[2023-09-12] MEDS ORDERED: Propofol 200 MG/20 ML SDV ONE (07:21)
[2023-09-12] MEDS ORDERED: Midazolam 1 MG/ML 2 ML SDV ONE ×2 (07:21→08:48)
[2023-09-12 11:00] VITALS: BP 104/62; PULSE 64
== END 2023-09-12 11:00 | disposition home or self-care (01) ==
LOC: JP.SDS 06:22
PROVIDERS: ATTEND Student in an Organized Health Care Education/Training Program
DX: Z12.11 Encounter for screening for malignant neoplasm of colon (principal); Q43.8 Other specified congenital malformations of intestine
CPT/HCPCS: 45378; 93005; J2250; J2704; J7120

== ENCOUNTER → 2023-11-14 | Day surgery (SDC) | payer BC ==
[~2023-11-14] MED LIST: Midazolam 1 MG/ML 2 ML SDV ONE; Pantoprazole 40 MG Tab.CR PO ONE; Propofol 200 MG/20 ML SDV ONE; Sodium Chloride 0.9% 10 ML Syringe FLUSH PRN; fentaNYL 100 MCG/2 ML SDV ONE
[2023-11-14 09:30] LABS: BASOPHILS ABSOLUTE AUTO 0.03 K/uL (0.00-0.10); BASOPHILS PERCENT AUTO 0.5 % (0.1-1.3); EOSINOPHILS ABSOLUTE AUTO 0.08 K/uL (0.00-0.40); EOSINOPHILS PERCENT AUTO 1.2 % (0.0-5.4); HEMATOCRIT 42.7 % (34.3-46.0); HEMOGLOBIN 14.6 g/dL (11.2-15.5); IMMATURE GRAN ABSOLUTE AUTO 0.05 K/uL (0.00-0.23); IMMATURE GRAN PERCENT AUTO 0.8 % (0.0-0.7); LYMPHOCYTES ABSOLUTE AUTO 2.33 K/uL (0.8-3.3); LYMPHOCYTES PERCENT AUTO 36.3 % (11.4-47.7); MEAN CORPUSCULAR HEMOGLOBIN 29.3 pg (31.6-35.5); MEAN CORPUSCULAR HGB CONC 34.2 g/dL (31.6-35.5); MEAN CORPUSCULAR VOLUME 85.7 fL (81.4-99.0); MONOCYTES ABSOLUTE AUTO 0.44 K/uL (0.20-0.90); MONOCYTES PERCENT AUTO 6.9 % (3.3-12.6); NEUTROPHILS ABSOLUTE AUTO 3.48 K/uL (1.0-7.6); NEUTROPHILS PERCENT AUTO 54.3 % (40.0-78.1); PLATELET COUNT,PLT 282 K/uL (130-375); RED BLOOD CELL COUNT 4.98 M/uL (3.77-5.24); WHITE BLOOD CELL COUNT,WBC 6.4 K/uL (3.2-11.0)
[2023-11-14] MEDS: Ondansetron 4 MG/2 ML SDV IVPUSH ONE (09:35)
[2023-11-14] MEDS: Pantoprazole 40 MG Vial IVPUSH ONE (09:37)
[2023-11-14 09:57] LABS: ALANINE AMINOTRANSFERASE,ALT 63 U/L (12-78); ALBUMIN 3.7 g/dL (3.4-5.0); ALKALINE PHOSPHATASE 73 U/L (46-116); ANION GAP 7.9 mmol/L (5.0-14.0); ASPARTATE AMNIOTRANSFERASE,AST 34 U/L (15-37); BILIRUBIN TOTAL 0.5 mg/dL (0.2-1.0); BLOOD UREA NITROGEN,BUN 17 mg/dL (7-18); C-REACTIVE PROTEIN < 0.50 mg/dL (<0.50); CALCIUM 8.2 mg/dL (8.5-10.1); CARBON DIOXIDE,CO2 31 mmol/L (21-32); CHLORIDE,CL 102 mmol/L (100-108); CREATININE 0.7 mg/dL (0.6-1.0); EST CRCL DRUG DOSING (CG) 80.42 mL/min; ESTIMATED GFR 106 mL/min (>60); GLUCOSE RANDOM 92 mg/dL (74-106); POTASSIUM,K 3.9 mmol/L (3.6-5.2); PROTEIN TOTAL,TP 7.3 g/dL (6.4-8.2); SODIUM,NA 137 mmol/L (140-148)
[2023-11-14] MEDS: Acetaminophen 1,000 MG in Premix Bag 1 BAG IV ONE (10:01)
[2023-11-14] MEDS: Sodium Chloride 0.9% 1,000 ML IV ONE (10:01)
[2023-11-14] MEDS: Iopamidol 612 MG/ML 100 ML Bottle IV PRN (10:43)
[2023-11-14] MEDS: Sodium Chloride 0.9% 10 ML Syringe FLUSH PRN (10:43)
[2023-11-14] MEDS: Sodium Chloride 0.9% 75 ML IV ONE (10:43)
[2023-11-14] MEDS: Alum Hydrox/Mag Hydrox/Simeth 15 ML, Lidocaine 2% 15 ML PO ONE (11:02)
[2023-11-14 13:57] VITALS: BP 97/55; PULSE 58
== END ==
LOC: JP.ED 08:30 → JP.SDS 11:54
PROVIDERS: ATTEND Surgery
DX: R10.13 Epigastric pain (principal); K21.9 Gastro-esophageal reflux disease without esophagitis; E66.9 Obesity, unspecified; Z79.899 Other long term (current) drug therapy; Z98.890 Other specified postprocedural states; Z68.28 Body mass index [BMI] 28.0-28.9, adult; Z88.5 Allergy status to narcotic agent; Z88.8 Allergy status to other drugs, medicaments and biological substances
CPT/HCPCS: 36415; 43235; 74177; 80053; 83690; 84484; 85025; 86140; 96361; 96374; 96375; 99284; A9270; C9113; J0131; J2250; J2405; J2704; J3490; J7030; Q9967; J3010

== ENCOUNTER 2024-06-04 06:56 | Day surgery (SDC) | payer BC, OTHER ==
[2024-06-04] MEDS ORDERED: Midazolam 1 MG/ML 2 ML SDV ONE (07:32)
[2024-06-04] MEDS ORDERED: fentaNYL 100 MCG/2 ML SDV ONE (07:32)
[2024-06-04] MEDS ORDERED: Propofol 200 MG/20 ML SDV ONE ×2 (07:32→08:00)
[2024-06-04] MEDS ORDERED: Bupivacaine 0.5% 30 ML SDV ONE ×2 (07:33→07:35)
[2024-06-04] MEDS: Nozin Nasal Sanitizer NASBOTH ONE (07:45)
[2024-06-04] MEDS: Lactated Ringers 1,000 ML IV SCH (07:55)
[2024-06-04] MEDS: diphenhydrAMINE 50 MG/ML SDV IVPUSH ONE (07:58)
[2024-06-04] MEDS: ceFAZolin 2 GM in Premix Bag 1 BAG IV ONE (08:23)
[2024-06-04] MEDS ORDERED: Ondansetron 4 MG/2 ML SDV ONE (08:57)
[2024-06-04] MEDS ORDERED: Dexamethasone 4 MG/ML SDV ONE (08:57)
[2024-06-04 11:39] VITALS: PULSE 56
[2024-06-04 11:40] VITALS: BP 97/55
== END 2024-06-04 12:03 | disposition home or self-care (01) ==
LOC: JP.SDS 06:56
PROVIDERS: ATTEND Specialist
DX: M75.41 Impingement syndrome of right shoulder (principal); M25.811 Other specified joint disorders, right shoulder
CPT/HCPCS: 01630; 29822; A9270; J0665; J0690; J1100; J1200; J2250; J2405; J2704; J3010; J7120